=== PATIENT | male | born 1955 | race African-American/Black ===

== ENCOUNTER 2022-04-20 11:04 | Emergency (ER) | payer OTHER ==
--- OUTSIDE RECORDS SUMMARY | 2022-04-20 11:08 | XMS REPORT | Continuity of Care Document ---
:1955 Author Organization [facility] t Address [address] [place] [address] Care Team Providers Name Role Phone GINGER DOVANH Primary Care Physician Unavailable CARLIE SAM Attending Clinician Unavailable Lexa Wan Attending Clinician SRIDEVI CROWLEY Attending Clinician Unavailable Sridevi Crowley DO Attending Clinician Doctor Unassigned, [place] Attending Clinician Unavailable Carlie Sam MD Attending Clinician Only, Adc Test Attending Clinician Unavailable CARLIE SAM Admitting Clinician Unavailable SRIDEVI CROWLEY Admitting Clinician Unavailable Calrie Sam MD Admitting Clinician Payers Payer Name Policy Type Policy Number Effective Date Expiration Date Gomez pachecojm UCHE/PITO [id number] 2020 MEDICARE ADVANTAGE 00:00:00 Problems Condition Condition Condition Status Onset Resolution Last Treating Co mments Source Name Details Category Date Date Treatment Clinician Date Headache Headache Problem Active 2016-082022-01-19 Memoria (finding) (finding) 0-10 03:32:07 l Active 00:00: Jose 06/02/2017 00 Problem 01/19/2022 [facility] Essential Essential Problem Active 2022-01-19 Memoria hypertensi hypertensi 2-10 03:32:07 l on on 00:00: Jose (disorder) (disorder) 00 Active 10/03/2016 Problem 01/19/2022 [facility] 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 2-10 03:32:07 l symptomati d 00:00: Ralph pham epilepsy symptomati 00 (disorder) c epilepsy (disorder) Active 10/03/2016 Problem 01/19/2022 [facility] Allergies, Adverse Reactions, Alerts Allergy Allergy Status Severity Reaction(s) Onset Inactive Treating Comm ents Source Name Type Date Date Clinician NO KNOWN Drug Active Univers ALLERGIE Class ity of [facility] [place] [facility] [place] Social History Social Habit Start Date Stop Date Quantity Comments Source Exposure to Not sure [facility] SARS-CoV-2 (event) [facility] Tobacco use and 2020-07-16 2020-07-16 Never used [facility] exposure 00:00:00 00:00:00 [facility] Sex Assigned At [birth year] [facility] 00:00:00 00:00:00 [facility] Smoking Status Start Date Stop Date Source Social History [facility] Never smoker [facility] Medications Ordered Filled Start Stop Current Ordering Indication Dosage Frequency Signature Comments Components Source Medication Medication Date Date Medication? Clinician (SIG) Name Name Yamileth 30 Yes 30 mg = 1 M emoria mg oral 5-26 cap, PO, l capsule, 15:04: Bedtime, # Her malin extended 00 90 cap, 2 release Refill(s), Pharmacy: [email or web address], 171.45, cm, 01/16/22 9:51:00 CDT, Height, 80.455, kg, 01/16/22 9:51:00 CDT, Weight phenytoin Yes See Memoria 100 mg oral 1-24 Instructio l capsule, 14:44: ns, TAKE 2 Her malin extended 00 CAPSULES release BY MOUTH DAILY AT BEDTIME, # 180 unknown unit, 2 Refill(s), Pharmacy: [email or web address], 170.18, cm, 01/16/21 9:54:00 CDT, Height, 81.818, kg, 01/16/21 9:54:00 CDT, Weight HYDROcodone 2020-08- No 1{tbl} 1 tablet, Univers -acetaminop 2-28 12-28 Oral, ity of hen (NORCO) 22:30: 21:32 [place] 10[place]325 mg 00 :00 dose, On Medica l tablet 1 Tue Branch tablet 08/20/21 at 1630, Routine naproxen 2020-08 Yes [id number] 550mg Take 1 U nivers sodium 2-28 tablet by ity of (ANAPROX 00:00: mouth 2 [place] DS) 550 mg 00 (two) Medical tablet times Branch daily with meals. methylPREDN 2020-08 Yes [id number] Take by Univers ISolone 2- mouth ity of (MEDROL, 00:00: SEE-INSTRU Alirio as EDU,) 4 mg 00 CTIONS. Medica l tablets follow [place] package directions methocarbam 2020-08- No [id number] 500mg Take 1 Univers oL 500 mg -20 09- tablet by ity of tablet 00:00: 05:59 mouth 3 [place] 00 :00 (three) Medical times Branch daily for 5 days. Phenytoin Yes 30 mg = 1 Mem oria sodium 30 5-26 cap, PO, l MG Extended 15:13: Bedtime, # Jose Release 00 30 cap, 11 Capsule Refill(s), [Dilantin] Pharmacy: [id number], 170.18, cm, 01/16/21 9:54:00 CDT, Height, 81.818, kg, 01/16/21 9:54:00 CDT, Weight phenytoin Yes = 2 cap, Mark joselyn 100 mg oral 5-26 PO, l capsule, 15:13: Bedtime, # Her malin extended 00 60 cap, 11 release Refill(s), Pharmacy: [id number], 170.18, cm, 01/16/21 9:54:00 CDT, Height, 81.818, kg, 01/16/21 9:54:00 CDT, Weight atorvastati 2019-08 Yes 80mg Take 80 mg Univers n 80 mg 1-25 by mouth ity of tablet 15:07: at [place] 50 bedtime. Medical Branch phenytoin 2019-08 Yes 100mg Take 100 Uni vers Extended 1-25 mg by ity of 100 mg 15:07: mouth [place] capsule 50 daily. Medical Branch phenytoin 2019-08 Yes 30mg Take 30 mg Un luke Extended 1-25 by mouth ity of (DILANTIN) 15:07: daily. [place] 30 mg 50 Medical capsule Branch Pantoprazol 2019-08 Yes 40mg Take 40 mg Univers e 40 mg 1-25 by mouth ity of delayed-rel 15:07: daily. Al[place]io[place] s ease 50 Medical suspension Branch aspirin 81 2019-08 Yes 81mg Take 81 mg U nivers mg chewable 1-25 by mouth ity of tablet 15:07: daily. [address] losartan 50 2019-08 Yes 50mg Take 50 mg Univers mg tablet 1-25 by mouth ity of 15:07: daily. [address] water for 2019-08 Yes PRN, Univers irrigation 1-25 Starting ity o f irrigation 14:11: Wed [place] solution 00 07/18/20 Medical at 0811, Branch Until Discontinu ed, Routine, Intra-op simethicone 2019-08 Yes PRN, Univer s (GAS RELIEF 1-25 Starting ity of (SIMETHICON 14:11: Wed [place] E)) 40 00 07/18/20 Medical mg/0.6 mL at 0811, Branch drops Until Discontinu ed, Routine, Intra-op lactated 2019-08 2020- No 1000mL at 42 Unive rs ringers IV 1-25 11-25 mL/hr, ity of infusion 13:15: 13:16 1,000 mL, Alirio as 1,000 mL 00 :00 IV Medical Infusion, [place] ONCE, 1 dose, Thu07/18/20 at 0715, Routine, [facility] Pre-op atorvastati 2019-08 Yes 80mg Take 80 mg Univers n 80 mg 1-25 by mouth ity of tablet 09:07: at [place] [address] bedtime. Medical Branch phenytoin 2019-08 Yes 100mg Take 100 Uni vers Extended 1-25 mg by ity of 100 mg 09:07: mouth [place] capsule 50 daily. Medical Branch phenytoin 2019-08 Yes 30mg Take 30 mg Un luke Extended 1-25 by mouth ity of (DILANTIN) 09:07: daily. [place] 30 mg 50 Medical capsule Branch Pantoprazol 2019-08 Yes 40mg Take 40 mg Univers e 40 mg 1-25 by mouth ity of delayed-rel 09:07: daily. [place] s ease 50 Medical suspension [place] aspirin 81 2019-08 Yes 81mg Take 81 mg U nivers mg chewable 1-25 by mouth ity of tablet 09:07: daily. [place] [address] Medical Branch losartan 50 2019-08 Yes 50mg Take 50 mg Univers mg tablet 1-25 by mouth ity of 09:07: daily. [place] [address] Medical Branch atorvastati 2019-08 Yes 80mg Take 80 mg Univers n 80 mg 1-25 by mouth ity of tablet 09:07: at [place] [address] bedtime. Medical Branch phenytoin 2019-08 Yes 100mg Take 100 Uni vers Extended 1-25 mg by ity of 100 mg 09:07: mouth [place] capsule 50 daily. Medical Branch phenytoin 2019-08 Yes 30mg Take 30 mg Un luke Extended 1-25 by mouth ity of (DILANTIN) 09:07: daily. [place] 30 mg 50 Medical capsule Branch Pantoprazol 2019-08 Yes 40mg Take 40 mg Univers e 40 mg 1-25 by mouth ity of delayed-rel 09:07: daily. [facility] 50 Medical suspension Branch aspirin 81 2019-08 Yes 81mg Take 81 mg U nivers mg chewable 1-25 by mouth ity of tablet 09:07: daily. [place] [address] Medical Branch losartan 50 2019-08 Yes 50mg Take 50 mg Univers mg tablet 1-25 by mouth ity of 09:07: daily. [place] [address] Medical Branch phenytoin 2019-08 Yes 30mg Take 30 mg Un luke Extended 1-23 by mouth ity of (DILANTIN) 15:28: daily. [place] 30 mg 42 Medical capsule Branch phenytoin 2019-08 Yes 30mg Take 30 mg Un luke Extended 1-23 by mouth ity of (DILANTIN) 15:28: daily. [place] 30 mg 42 Medical capsule Branch aspirin 81 2019-08 Yes 81mg Take 81 mg U nivers mg chewable 1-23 by mouth ity of tablet 15:25: daily. [place] [address] Medical Branch losartan 50 2019-08 Yes 50mg Take 50 mg Univers mg tablet 1-23 by mouth ity of 15:25: daily. [place] [address] Medical Branch atorvastati 2019-08 Yes 80mg Take 80 mg Univers n 80 mg 1-23 by mouth ity of tablet 15:25: at [place] [address] bedtime. Medical Branch phenytoin 2019-08 Yes 100mg Take 100 Uni vers Extended 1-23 mg by ity of 100 mg 15:25: mouth [place] capsule 12 daily. Medical Branch Pantoprazol 2019-08 Yes 40mg Take 40 mg Univers e 40 mg -23 by mouth ity of delayed-rel 15:25: daily. Mae s ease 12 Medical suspension Branch aspirin 81 2019- Yes 81mg Take 81 mg U nivers mg chewable -23 by mouth ity of tablet 15:25: daily. [place] [address] Medical Branch losartan 50 2019- Yes 50mg Take 50 mg Univers mg tablet 09-15 by mouth ity of 15:25: daily. [place] [address] Medical Branch atorvastati 2019- Yes 80mg Take 80 mg Univers n 80 mg -23 by mouth ity of tablet 15:25: at [place] [address] bedtime. Medical Branch phenytoin 2019-08 Yes 100mg Take 100 Uni vers Extended 1-23 mg by ity of 100 mg 15:25: mouth [place] [facility] 12 daily. Medical Branch Pantoprazol 2019-08 Yes 40mg Take 40 mg Univers e 40 mg 23 by mouth ity of delayed-rel 15:25: daily. Mae s ease 12 Medical suspension Branch phenytoin Yes 200 mg = 2 Me moria 100 mg oral 5-26 cap, PO, l capsule, 19:06: Bedtime, # Her malin extended 00 60 cap, 9 release Refill(s), Pharmacy: [id number] #[id number] Phenytoin Yes 30 mg = 1 Mem oria sodium 30 5-26 cap, PO, l MG Extended 19:06: Bedtime, # [place] Release 00 90 cap, 3 Capsule Refill(s), [Dilantin] Pharmacy: [id number] #[id number] Phenytoin Yes 30 mg = 1 Mem oria sodium 30 4-03 cap, PO, l MG Extended 14:51: Bedtime, # [place] Release 00 90 cap, 3 Capsule Refill(s), [Dilantin] Pharmacy: [email or web address] #[id number] phenytoin Yes 200 mg = 2 Me moria 100 mg oral 5-16 cap, PO, l capsule, 14:31: Bedtime, # Her malin extended 54 60 cap, 9 release Refill(s), Pharmacy: [id number] #[id number] Phenytoin Yes 30 mg = 1 Mem oria sodium 30 5-16 cap, PO, l MG Extended 14:31: Bedtime, # [place] Release 52 30 cap, 9 Capsule Refill(s), [Dilantin] Pharmacy: [email or web address][id number] Vital Signs Vital Name Observation Time Observation Value Comments Source Oxygen saturation in 2021-08-20 19:15:00 99 /min University of Arterial blood by [facility] Pulse oximetry Branch Systolic blood 2021-08-20 19:15:00 152 mm[Hg] Univer sity of pressure [place] [facility] [place] Diastolic blood 2021-08-20 19:15:00 83 mm[Hg] Unive rsity of pressure [place] [facility] [place] Heart rate 2021-08-20 19:15:00 68 /min Universi ty of [facility] Body temperature 2021-08-20 19:15:00 37.17 Za [facility] ersity of [facility] Branch Respiratory rate 2021-08-20 19:15:00 18 /min Univ ersity of [place] [facility] [place] Body weight 2021-08-20 19:15:00 81.194 kg Universi ty of [place] [facility] [place] BMI 2021-08-20 19:15:00 28.03 kg/m2 Universi ty of [place] [facility] [place] Systolic blood 2020-07-18 14:55:00 122 mm[Hg] Univer sity of pressure [place] [facility] Diastolic blood 2020-07-18 14:55:00 71 mm[Hg] Unive rsity of pressure [place] [facility] [place] Heart rate 2020-07-18 14:55:00 59 /min Universi ty of [place] [facility] Respiratory rate 2020-07-18 14:55:00 18 /min [facility] Oxygen saturation in 2020-07-18 14:55:00 100 /min University of Arterial blood by [facility] Pulse oximetry Branch Body temperature 2020-07-18 14:50:00 36.22 Za [facility] ersity of [place] [facility] [place] Body height 2020-07-16 16:23:00 170.2 cm Universi ty of [place] [facility] [place] Body weight 2020-07-16 16:23:00 81.6 kg Universi ty of [place] [facility] [place] BMI 2020-07-16 16:23:00 28.17 kg/m2 Universi ty of [place] [facility] Systolic (mm Hg) 2022-01-16 14:38:00 Mark rial [place] Diastolic (mm Hg) 2022-01-16 14:38:00 Mem orial [place] Heart Rate 2022-01-16 14:38:00 Memorial [place] Respitory Rate 2022-01-16 14:38:00 Memori al [place] Height 2022-01-16 14:38:00 171.45 cm [facility] [place] Weight 2022-01-16 14:38:00 [facility] [place] BMI Calculated 2022-01-16 14:38:00 Memori al [place] Systolic (mm Hg) 2021-01-16 14:48:00 Mark rial [place] Diastolic (mm Hg) 2021-01-16 14:48:00 Mem orial [place] Heart Rate 2021-01-16 14:48:00 [facility] [place] Respitory Rate 2021-01-16 14:48:00 Memori al [place] Height 2021-01-16 14:48:00 170.18 cm [facility] [place] Weight 2021-01-16 14:48:00 [facility] [place] BMI Calculated 2021-01-16 14:48:00 Memori al [place] Systolic (mm Hg) 2020-01-17 18:39:00 Mark rial [place] Diastolic (mm Hg) 2020-01-17 18:39:00 Mem orial [place] Heart Rate 2020-01-17 18:39:00 [facility] [place] Respitory Rate 2020-01-17 18:39:00 Memori al [place] Height 2020-01-17 18:39:00 170.18 cm Memorial [place] Weight 2020-01-17 18:39:00 [facility] [place] BMI Calculated 2020-01-17 18:39:00 Memori al [place] Temperature Oral (F) 2020-01-17 18:39:00 98.7 F Memorial Jose BMI Calculated 2019-01-06 14:15:00 Memori al [place] Weight 2019-01-06 14:15:00 [facility] [place] Height 2019-01-06 14:15:00 170.18 cm [facility] [place] Respitory Rate 2019-01-06 14:15:00 Memori al [place] Heart Rate 2019-01-06 14:15:00 [facility] [place] Systolic (mm Hg) 2019-01-06 14:15:00 Mark rial [place] Diastolic (mm Hg) 2019-01-06 14:15:00 Mem orial [place] Procedures Procedure Date / Time Performing Clinician Source Performed XR HAND <3 VW LEFT 2021-08-20 21:25:53 Sridevi Crowleyit y of [facility] CT CERVICAL SPINE WO 2021-08-20 20:21:07 Sridevi Crowley [facility] ity [facility] CONTRAST [facility] CT HEAD WO CONTRAST 2021-08-20 20:21:07 Sridevi Crowley [facility] XR CHEST 1 VW 2021-08-20 20:20:52 Singer Sridevi [place] [facility] CONSENT/REFUSAL FOR 2021-08-20 18:58:35 Doctor Unassigned, No Un iversity of [place] DIAGNOSIS AND TREATMENT Name [facility] NOTICE OF PRIVACY 2021-08-20 18:58:13 Doctor Unassigned, No [facility] 2020-07-18 12:52:38 Triston Roberts [facility] CONSENT/REFUSAL FOR 2020-07-17 19:21:33 Doctor Unassigned, No Un [facility] [place] DIAGNOSIS [facility] TREATMENT Name [facility] ASSIGNMENT OF BENEFITS 2020-07-17 19:21:09 Doctor Unassigned, No [facility] DSU PRE-OP 2020-06-21 05:01:00 Doctor Unassigned, No Univer [facility] Encounters Start End Encounter Admission Attending Care Care Encounter Source Date/Time Date/Time Type Type Clinicians Facility Department ID 2021-06-22 Outpatient R ANASTASIA [facility] [id number] Univers 07:34:15 CARLIE [facility] 2023-01-16 2023-01-16 Outpatient MHIE DARLING [id number] Memoria 09:30:00 09:30:00 Mindy Garcia 2022-01-16 2022-01-17 Outpatient nullFlavo MNA [id number] Memoria 14:30:00 04:59:59 r Neurology 06 mariluz Garcia 2022-01-16 2022-01-16 Outpatient HECTOR Wan [id number] 09:30:00 23:59:59 Lexa Starr 2022-01-16 2022-01-16 Outpatient MHIE LAURENIE [id number] Memoria 09:30:00 09:30:00 06 mariluz Garcia 2021-08-20 2021-08-20 Emergency X , [facility] ERT [id number] Univers 13:16:00 16:00:00 SRIDEVI dontaejameel of [facility] 2021-08-20 2021-08-20 Emergency , [facility] [id number] Univers 13:16:00 16:00:00 Sridevi STONE [id number] i ty [facility] [id number] [facility] [id number] [facility] 084 Branch 2021-08-20 2021-08-20 Orders Doctor JAIRO [id number] Univers 00:00:00 00:00:00 Only Unassigned, ORACIO [id number] ity [facility] [id number] [facility] [id number] [facility] 009 Branch 2021-01-16 2021-01-17 Outpatient nullFlavo MNA [id number] Memoria 14:30:00 04:59:59 r Neurology 05 l Kumar Jose 2021-01-16 2021-01-16 Outpatient NORBERTO WanSCHER MHMISCHER [id number] 09:30:00 23:59:59 Lexa Yulia [facility] 2021-01-16 2021-01-16 Ambulatory nullFlavo MNA [id number] Memoria 14:30:00 14:30:00 Pre-Reg r Neurology 04 l Kumar [place] 2021-01-16 2021-01-16 Outpatient MHIE MHIE [id number] Memoria 09:30:00 09:30:00 04 l [place] 2021-01-16 2021-01-16 Outpatient MHIE MHIE [id number] Memoria 09:30:00 09:30:00 05 mariluz [place] 2021-01-16 2021-01-16 Outpatient NORBERTO WanSCHER MHMISCHER [id number] 09:30:00 09:30:00 Lexa 04 Matty 2020-07-18 2020-07-18 [facility] [id number] Univers 06:58:00 09:07:00 Carlie Lucero [id number] ity of [place] [id number] [place] [id number] [facility] 071 Branch 2020-07-17 2020-07-17 Laboratory Only, Adc Test [facility] [id number]. [id number] Univers 13:28:55 13:43:55 Only Carlie Samton 350.1.1 3.10 ity of [place] [id number] [place] [id number] [facility] 353 Branch 2020-07-17 2020-07-17 Outpatient R [facility]ZIN [facility] [id number] Univers 13:15:00 13:15:00 CARLIE Bryant o f [facility] 2020-07-17 2020-07-17 Orders Doctor JAIRO [id number] Univers 00:00:00 00:00:00 Only Unassigned, [place] [id number] [facility] [id number] Alirio as [id number] [facility] 009 [place] 2020-01-17 2020-01-18 Outpatient nullFlavo MNA [id number] Memoria 18:15:00 04:59:59 r Neurology 03 l Kumar [place] 2020-01-17 2020-01-17 Outpatient LAUREN WanMISCHER MHMISCHER [id number] 13:15:00 23:59:59 Lexa 03 [facility] 2020-01-17 2020-01-17 Outpatient MHIE MHIE [id number] Memoria 13:15:00 13:15:00 03 mariluz [place] 2020-01-12 2020-01-12 Ambulatory nullFlavo MNA [id number] Memoria 14:00:00 14:00:00 Pre-Reg r Neurology 02 l Kumar [place] 2020-01-12 2020-01-12 Outpatient MHIE MHIE [id number] Memoria 09:00:00 09:00:00 02 mariluz [place] 2020-01-12 2020-01-12 Outpatient LAUREN WanMISCHER MHMISCHER [id number] 09:00:00 09:00:00 Lexa 02 [facility] 2019-01-06 2019-01-07 Outpatient nullFlavo MNA [id number] Memoria 14:00:00 04:59:59 r Neurology 01 l Kumar Garcia 2019-01-06 2019-01-06 Outpatient Soco MISCHER MHMISCHER [id number] 09:00:00 23:59:59 Lexa Cristiana Matty 2019-01-06 2019-01-06 Outpatient MHIE MHIE [id number] Memoria 09:00:00 09:00:00 01 mariluz Garcia 2018-09-02 2018-09-04 Outside nullFlavo MNA [id number] Memoria 13:50:00 05:59:59 Medical r Neurology 01 l Records Kumar Garcia 2018-09-02 2018-09-03 Outpatient MHMISCHER MHMISCHER [id number] 07:50:00 23:59:59 2018-04-08 2018-04-08 Outpatient MHIE MHIE [id number] Memoria 09:15:00 09:15:00 00 mariluz Garcia Results This patient has no known results.
[2022-04-20] MEDS ORDERED: KETOROLAC 30 MG/ML INJ ONE (11:44)
--- NOTE | 2022-04-20 13:18 | RAD REPORT ---
EXAM DESCRIPTION: RAD - Shoulder Left 2 View - 04/20/2022 1:05 pm CLINICAL HISTORY: shoulder pain COMPARISON: No comparisons FINDINGS/IMPRESSION: No acute fracture. No malalignment. Left AC joint degenerative changes with sub acromial spurring.
--- NOTE | 2022-04-20 13:29 | EDPHYS ---
Physician Documentation [facility] Name: Nav Clemons Age: 66 yrs Sex: Male : 1955 Arrival Date: 04/20/2022 Time: 11:08 Bed 17 Private MD: ED Physician Jaylan Rose HPI: 04/20 11:23 This 66 yrs old Black Male presents to ER via Ambulatory with complaints of Shoulder jmm Injury. 11:23 The patient or guardian complains of an injury, pain. Onset: The symptoms/episode jmm began/occurred acutely, 1 day(s) ago. Modifying factors: the symptoms are alleviated by nothing. The symptoms are aggravated by movement. Is a 66-year-old male with history of hyperlipidemia, hypertension, epilepsy the presents emerged part with complaints of left shoulder pain beginning after a fall which occurred yesterday. Patient denies hitting his head. Denies other injury.. Historical: - Allergies: 11:14 NKA; ss - PMHx: 11:14 Hyperlipidemia; Hypertension; Seizures; ss - Immunization history:: Client reports having NOT received the Covid vaccine. - Social history:: Smoking status: Patient denies any tobacco usage or history of. ROS: 11:23 Constitutional: Negative for fever, chills, and weight loss, Cardiovascular: Negative jmm for chest pain, palpitations, and edema, Respiratory: Negative for shortness of breath, cough, wheezing, and pleuritic chest pain. 11:23 MS/extremity: Positive for injury or acute deformity. 11:23 All other systems are negative. Exam: 11:23 Constitutional: This is a well developed, well nourished patient who is awake, alert, jmm and in no acute distress. Head/Face: atraumatic. Eyes: EOMI, no conjunctival erythema appreciated ENT: Moist Mucus Membranes Neck: Trachea midline, Supple Chest/axilla: Normal chest wall appearance and motion. Cardiovascular: Regular rate and rhythm. No edema appreciated Respiratory: Normal respirations, no respiratory distress appreciated Abdomen/GI: Non distended Back: Normal ROM Skin: General appearance color normal 11:23 Musculoskeletal/extremity: ROM: intact in all extremities, Painful abduction appreciated to the left shoulder, compartments are soft, full radial pulse, full airplane rigger strength, neurovascular intact. 11:23 Skin: Appearance: Color: normal in color. 11:23 Neuro: Orientation: is normal, Mentation: is normal, Memory: is normal. 11:23 Psych: Behavior/mood is pleasant, cooperative. Vital Signs: 11:13 BP 124 / 84; Pulse 65; Resp 14; Temp 98.9(TE); Pulse Ox 99% on R/A; Weight 78.93 kg; ss Height 5 ft. 7 in. (170.18 cm); Pain 8/10; 11:13 Body Mass Index 27.25 (78.93 kg, 170.18 cm) ss MDM: 11:23 Patient medically screened. [facility] 13:25 Data reviewed: vital signs, nurses notes. Counseling: I had a detailed discussion with [facility] the patient and/or guardian regarding: the historical points, exam findings, and any diagnostic results supporting the discharge/admit diagnosis, radiology results, the need for outpatient follow up, to return to the emergency department if symptoms worsen or persist or if there are any questions or concerns that arise at home. ED course: Xray is negative. patient advised to follow up with ortho and otherwise given strict return precautions. patiet understood and agrees with the plan of care. . 04/20 11:24 Order name: Shoulder Left (2 View) XRAY; Complete Time: 13:20 [facility] 04/20 13:28 Order name: Sling; Complete Time: 13:46 [facility] Administered Medications: 11:38 Drug: Ketorolac 30 mg Route: IM; Site: right deltoid; mb8 12:31 Follow up: Response: No adverse reaction; Pain is decreased mb8 Disposition: 17:27 Co-signature as Attending Physician, Jaylan Rose MD. rn Disposition Summary: 04/20/22 13:28 Discharge Ordered Location: Home [facility] Condition: Stable [facility] Diagnosis - Other sprain of left shoulder joint [facility] Followup: [facility] - With: Nav Lowery MD - When: 2 - 3 days - Reason: Recheck today's complaints, Continuance of care, Re-evaluation by your physician Discharge Instructions: - Discharge Summary Sheet [facility] - Shoulder Pain [facility] Forms: - Medication Reconciliation Form [facility] - Thank You Letter [facility] - Antibiotic Education [facility] - Prescription Opioid Use [facility] Prescriptions: - orphenadrine citrate 100 mg Oral Tablet Sustained Release - take 1 tablet by ORAL route 2 times per day As needed; 20 tablet; Refills: 0, [facility] Product Selection Permitted Signatures: Dispatcher [employer] Nolberto Niño PA PA jmm Jaylan Rose MD MD rn Smirch, Shelby, RN RN ss Francisco Doe RN RN mb8
--- NOTE | 2022-04-20 13:29 | ER ---
Nurse's Notes [facility] Name: Nav Clemons Age: 66 yrs Sex: Male : 1955 Arrival Date: 04/20/2022 Time: 11:08 Bed 17 Private MD: Diagnosis: Other sprain of left shoulder joint Presentation: 04/20 11:13 Chief complaint: Patient states: L shoulder pain after falling yesterday. Coronavirus ss screen: Client denies travel out of the [place] in the last 14 days. Ebola Screen: Patient denies exposure to infectious person. Patient denies travel to an Ebola-affected area in the 21 days before illness onset. Initial Sepsis Screen: Does the patient meet any 2 criteria? No. Patient's initial sepsis screen is negative. Does the patient have a suspected source of infection? No. Patient's initial sepsis screen is negative. Risk Assessment: Do you want to hurt yourself or someone else? Patient reports no desire to harm self or others. Onset of symptoms was April 19, 2022. 11:13 Method Of Arrival: Ambulatory ss 11:13 Acuity: LOLY 4 ss Triage Assessment: 11:40 General: Appears in no apparent distress. comfortable, Behavior is calm, cooperative, mb8 appropriate for age. Injury Description: Fall from ladder, left shoulder pain. Historical: - Allergies: 11:14 NKA; ss - PMHx: 11:14 Hyperlipidemia; Hypertension; Seizures; ss - Immunization history:: Client reports having NOT received the Covid vaccine. - Social history:: Smoking status: Patient denies any tobacco usage or history of. Screenin:39 Abuse screen: Denies threats or abuse. Denies injuries from another. Nutritional mb8 screening: No deficits noted. Tuberculosis screening: No symptoms or risk factors identified. Fall Risk None identified. Assessment: 11:38 General: Appears in no apparent distress. comfortable, Behavior is calm, cooperative, mb8 appropriate for age. Pain: Complains of pain in Left Shoulder Pain currently is 8 out of 10 on a pain scale. Quality of pain is described as aching. Cardiovascular: No deficits noted. Pulses are all present. Respiratory: No deficits noted. Breath sounds are clear bilaterally. Musculoskeletal: Reports pain in Left Shoulder Pain is 8 out of 10 on a pain scale. 12:31 Reassessment: Patient and/or family updated on plan of care and expected duration. Pain mb8 level reassessed. Patient is alert, oriented x 3, equal unlabored respirations, skin warm/dry/pink. Patient states feeling better. Patient states symptoms have improved. 13:03 Reassessment: Patient and/or family updated on plan of care and expected duration. Pain mb8 level reassessed. Patient is alert, oriented x 3, equal unlabored respirations, skin warm/dry/pink. Patient states feeling better. Patient undated on the wait for x-rays to be read. Patient given cup of water with CHRISS Sherman approval. . Vital Signs: 11:13 BP 124 / 84; Pulse 65; Resp 14; Temp 98.9(TE); Pulse Ox 99% on R/A; Weight 78.93 kg; ss Height 5 ft. 7 in. (170.18 cm); Pain 8/10; 11:13 Body Mass Index 27.25 (78.93 kg, 170.18 cm) ED Course: 11:08 Patient arrived in ED. rg4 11:10 Nolberto Sherman PA is PHCP. [facility] 11:10 Jaylan Rose MD is Attending Physician. jmm 11:14 Triage completed. ss 11:14 Arm band placed on right wrist. ss 11:19 Francisco Doe, WILTON is Primary Nurse. mb8 11:39 Patient has correct armband on for positive identification. Bed in low position. Call mb8 light in reach. Side rails up X2. 11:39 No provider procedures requiring assistance completed. X-ray(s) taken. Patient did not mb8 have IV access during this emergency room visit. 12:51 Shoulder Left (2 View) XRAY Sent. mb8 13:07 Shoulder Left (2 View) XRAY In Process Unspecified. EDMS 13:28 Nav Lowery MD is Referral Physician. jmm 13:52 Sling applied to left arm. mb8 Administered Medications: 11:38 Drug: Ketorolac 30 mg Route: IM; Site: right deltoid; mb8 12:31 Follow up: Response: No adverse reaction; Pain is decreased mb8 Medication: 11:39 VIS not applicable for this client. mb8 Outcome: 13:28 Discharge ordered by . jmm 13:52 Discharged to home ambulatory. mb8 13:52 Condition: stable 13:52 Discharge instructions given to patient, Instructed on discharge instructions, follow up and referral plans. no drinking with medication, no driving heavy equipment, medication usage, Demonstrated understanding of instructions, follow-up care, medications, Prescriptions given X 1. 13:53 Patient left the ED. mb8 Signatures: Dispatcher [employer] EDMS Nolberto Sherman PA PA jmm Smirch, Shelby, RN RN ss Garcia, Rubi rg4 Francisco Doe RN RN mb8
[2022-04-20 14:00] VITALS: BP 124/84; TEMP 98.9; O2SAT 99
== END 2022-04-20 13:53 | disposition home or self-care (01) ==
LOC: ER 11:04
DX: S43.492A Other sprain of left shoulder joint, initial encounter (principal); I10 Essential (primary) hypertension
CPT/HCPCS: 96372; 99284

== ENCOUNTER 2023-01-05 23:31 | Observation (INO) | payer OTHER ==
--- OUTSIDE RECORDS SUMMARY | 2023-01-05 23:34 | XMS REPORT | Continuity of Care Document ---
:1955 Author Organization [facility] t Address [address] [place] [address] [place] [id number] Care Team Providers Name Role Phone MIGUEL ANGEL MILES Primary Care Physician Unavailable CARLIE SEGURA Attending Clinician Unavailable Marino Andrea Attending Clinician Unavailable Lexa Wan Attending Clinician SRIDEVI CROWLEY Attending Clinician Unavailable Sridevi Crowley DO Attending Clinician Doctor Unassigned, [place] Attending Clinician Unavailable Carlie Segura MD Attending Clinician Only, Adc Test Attending Clinician Unavailable CARLIE SEGURA Admitting Clinician Unavailable Marino Andrea Admitting Clinician Unavailable SRIDEVI CROWLEY Admitting Clinician Unavailable Carlie Segura MD Admitting Clinician Payers Payer Name Policy Type Policy Number Effective Date Expiration Date Gomez IVEY/PITO [id number] 2020 MEDICARE ADVANTAGE 00:00:00 Problems Condition Condition Condition Status Onset Resolution Last Treating Co mments Source Name Details Category Date Date Treatment Clinician Date Headache Headache Problem Active 2016-082022-01-19 Memoria (finding) (finding) 0-10 03:32:07 l Active 00:00: Jose 06/02/2017 00 Problem 01/19/2022 [facility] Essential Essential Problem Active 2022-01-19 Memoria hypertensi hypertensi 2-10 03:32:07 l on on 00:00: [place] (disorder) (disorder) 00 Active 10/03/2016 Problem 01/19/2022 [facility] 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 2- 03:32:07 l symptomati d 00:00: Ralph n c epilepsy symptomati 00 (disorder) c epilepsy (disorder) Active 10/03/2016 Problem 01/19/2022 [facility] Allergies, Adverse Reactions, Alerts Allergy Allergy Status Severity Reaction(s) Onset Inactive Treating Comm ents Source Name Type Date Date Clinician No Known DA Active [facility] All[facility]ie 3-02 [place] [facility] NO KNOWN Drug Active Univers ALLERGIE Class ity of S [facility] No Known No Known Active Memori a Medicati Medicati l on on [place] Allergie Allergie s s Social History Social Habit Start Date Stop Date Quantity Comments Source Exposure to Not sure [facility] SARS-CoV-2 (event) Medica l Branch Tobacco use and 2020-07-16 2020-07-16 Never used [facility] exposure 00:00:00 00:00:00 [facility] Sex Ass[birth year] At [birth year] [facility] 00:00:00 00:00:00 [facility] Smoking Status Start Date Stop Date Source Social History [facility] Never smoker [facility] Medications Ordered Filled Start Stop Current Ordering Indication Dosage Frequency Signature Comments Components Source Medication Medication Date Date Medication? Clinician (SIG) Name Name Dilantin 30 Yes 30 mg = 1 M emoria mg oral 5-26 cap, PO, l capsule, 15:04: Bedtime, # Her malin extended 00 90 cap, 2 release Refill(s), Pharmacy: [facility], 171.45, cm, 01/16/22 9:51:00 CDT, Height, 80.455, kg, 01/16/22 9:51:00 CDT, Weight Dilantin 30 2022-0 Yes 30 mg = 1 M emoria mg oral 5-26 cap, PO, l capsule, 15:04: Bedtime, # Her malin extended 00 90 cap, 2 release Refill(s), Pharmacy: [facility], 171.45, cm, 01/16/22 9:51:00 CDT, Height, 80.455, kg, 01/16/22 9:51:00 CDT, Weight Dilantin 30 2021-0 Yes 30 mg = 1 M emoria mg oral 5-26 cap, PO, l capsule, 15:04: Bedtime, # Her malin extended 00 90 cap, 2 release Refill(s), Pharmacy: [facility], 171.45, cm, 01/16/22 9:51:00 CDT, Height, 80.455, kg, 01/16/22 9:51:00 CDT, Weight phenytoin 2021-0 Yes See Memoria 100 mg oral 1-24 Instructio l capsule, 14:44: ns, TAKE 2 Her malin extended 00 CAPSULES release BY MOUTH DAILY AT BEDTIME, # 180 unknown unit, 2 Refill(s), Pharmacy: [facility], 170.18, cm, 01/16/21 9:54:00 CDT, Height, 81.818, kg, 01/16/21 9:54:00 CDT, Weight phenytoin 2021-0 Yes See Memoria 100 mg oral 1-24 Instructio l capsule, 14:44: ns, TAKE 2 Her malin extended 00 CAPSULES release BY MOUTH DAILY AT BEDTIME, # 180 unknown unit, 2 Refill(s), Pharmacy: [facility], 170.18, cm, 01/16/21 9:54:00 CDT, Height, 81.818, kg, 01/16/21 9:54:00 CDT, Weight phenytoin 2021-0 Yes See Memoria 100 mg oral 1-24 Instructio l capsule, 14:44: ns, TAKE 2 Her malin extended 00 CAPSULES release BY MOUTH DAILY AT BEDTIME, # 180 unknown unit, 2 Refill(s), [facility]: [email or web address], 170.18, cm, 01/16/21 9:54:00 CDT, Height, 81.818, kg, 01/16/21 9:54:00 CDT, Weight HYDROcodone 2020-08- No 1{tbl} 1 tablet, Univers -acetaminop 10-21 Oral, ity of hen (NORCO) 22:30: 21:32 [place]CE[place] 10[place]325 mg 00 :00 dose, On Medica l tablet 1 Tue Branch tablet 08/20/21 at 1630, Routine naproxen 2020-08 Yes [id number] 550mg Take 1 U nivers sodium - tablet by ity of (ANAPROX 00:00: mouth 2 [place] DS) 550 mg 00 (two) Medical tablet times Branch daily with meals. methylPREDN 2020-08 Yes [id number] Take by Univers ISolone 10-21 mouth ity of (MEDROL, 00:00: SEE-INSTRU Alirio as EDU,) 4 mg 00 CTIONS. Medica l tablets follow Branch package directions methocarbam 2020-08 No [id number] 500mg Take 1 Univers oL 500 mg 10-21 tablet by ity of tablet 00:00: 05:59 mouth 3 [place] 00 :00 (three) Medical times Branch daily for 5 days. Phenytoin Yes 30 mg = 1 Mem oria sodium 30 5-26 cap, PO, l MG Extended 15:13: Bedtime, # [place] Release 00 30 cap, 11 Capsule Refill(s), [Dilantin] Pharmacy: [id number], 170.18, cm, 01/16/21 9:54:00 CDT, Height, 81.818, kg, 01/16/21 9:54:00 CDT, Weight phenytoin Yes = 2 cap, Mark joselyn 100 mg oral 5-26 PO, l capsule, 15:13: Bedtime, # Her malin extended 00 60 cap, 11 release Refill(s), Pharmacy: [id number], 170.18, cm, 01/16/21 9:54:00 CDT, Height, 81.818, kg, 01/16/21 9:54:00 CDT, Weight Phenytoin Yes 30 mg = 1 Mem oria sodium 30 5-26 cap, PO, l MG Extended 15:13: Bedtime, # [place] Release 00 30 cap, 11 Capsule Refill(s), [Dilantin] Pharmacy: [facility] #[id number], 170.18, cm, 01/16/21 9:54:00 CDT, Height, 81.818, kg, 01/16/21 9:54:00 CDT, Weight phenytoin 2020-0 Yes = 2 cap, Mark joselyn 100 mg oral 5-26 PO, l capsule, 15:13: Bedtime, # Her malin extended 00 60 cap, 11 release Refill(s), Pharmacy: [facility] #[id number], 170.18, cm, 01/16/21 9:54:00 CDT, Height, 81.818, kg, 01/16/21 9:54:00 CDT, Weight Phenytoin 0 Yes 30 mg = 1 Mem oria sodium 30 5-26 cap, PO, l MG Extended 15:13: Bedtime, # Jose Release 00 30 cap, 11 Capsule Refill(s), [Dilantin] Pharmacy: [facility] #[id number], 170.18, cm, 01/16/21 9:54:00 CDT, Height, 81.818, kg, 01/16/21 9:54:00 CDT, Weight phenytoin 2020-0 Yes = 2 cap, Mark joselyn 100 mg oral 5-26 PO, l capsule, 15:13: Bedtime, # malin extended 00 60 cap, 11 release Refill(s), Pharmacy: [facility] #[id number], 170.18, cm, 01/16/21 9:54:00 CDT, Height, [...] by mouth ity of (DILANTIN) 15:07: daily. [place] 30 mg 50 Medical capsule Branch Pantoprazol 2019-08 Yes 40mg Take 40 mg Univers e 40 mg 1-25 by mouth ity of delayed-rel 15:07: daily. Alirio[place] s ease 50 Medical suspension Branch aspirin 81 2019-08 Yes 81mg Take 81 mg U nivers mg chewable 1-25 by mouth ity of tablet 15:07: daily. [address] losartan 50 2019-08 Yes 50mg Take 50 mg Univers mg tablet 1-25 by mouth ity of 15:07: daily. [address] water for 2019-08 Yes PRN, Univers irrigation 1-25 Starting ity o f irrigation 14:11: Thu [place] solution 00 07/18/20 Medical at 0811, Branch Until Discontinu ed, Routine, Intra-op simethicone 2019-08 Yes PRN, Univer s (GAS RELIEF 1-25 Starting ity of (SIMETHICON 14:11: Thu [place] E)) 40 00 07/18/20 Medical mg/0.6 mL at 0811, Branch drops Until Discontinu ed, Routine, Intra-op lactated 2019-08 2020- No 1000mL at 42 Unive rs ringers IV 1-25 11-25 mL/hr, ity of infusion 13:15: 13:16 1,000 mL, Alirio as 1,000 mL 00 :00 IV Medical Infusion, [place] ONCE, 1 dose, Thu07/18/20 at 0715, Routine, [facility]SU Pre-op atorvastati 2019-08 Yes 80mg Take 80 mg Univers n 80 mg 1-25 by mouth ity of tablet 09:07: at [place] [address] bedtime. Medical Branch phenytoin 2019-08 Yes 100mg Take 100 Uni vers Extended 1-25 mg by ity of 100 mg 09:07: mouth [place] capsule 50 daily. Medical Branch phenytoin 2019-08 Yes 30mg Take 30 mg Un luke Extended 1-25 by mouth ity of (DILANTIN) 09:07: daily. [place] 30 mg 50 Medical capsule Branch Pantoprazol 2019-08 Yes 40mg Take 40 mg Univers e 40 mg 1-25 by mouth ity of delayed-rel 09:07: daily. [place] s ease 50 Medical suspension Branch aspirin 81 2019-08 Yes 81mg Take 81 mg U nivers mg chewable 1-25 by mouth ity of tablet 09:07: daily. [address] losartan 50 2019-08 Yes 50mg Take 50 mg Univers mg tablet 1-25 by mouth ity of 09:07: daily. [place] [address] Medical Branch atorvastati 2019-08 Yes 80mg Take 80 mg Univers n 80 mg 1-25 by mouth ity of tablet 09:07: at [place] [address] bedtime. Medical Branch phenytoin 2019-08 Yes 100mg Take 100 Uni vers Extended 1-25 mg by ity of 100 mg 09:07: mouth [place] capsule 50 daily. Medical Branch phenytoin 2019-08 Yes 30mg Take 30 mg Un luke Extended 1-25 by mouth ity of (DILANTIN) 09:07: daily. [place] 30 mg 50 Medical capsule Branch Pantoprazol 2019-08 Yes 40mg Take 40 mg Univers e 40 mg 1-25 by mouth ity of delayed-rel 09:07: daily. [facility] s ease 50 Medical suspension Branch aspirin 81 2019-08 Yes 81mg Take 81 mg U nivers mg chewable 1-25 by mouth ity of tablet 09:07: daily. [place] [address] Medical Branch losartan 50 2019-08 Yes 50mg Take 50 mg Univers mg tablet 1-25 by mouth ity of 09:07: daily. [place] [address] Medical Branch phenytoin 2019-08 Yes 30mg Take 30 mg Un luke Extended 1-23 by mouth ity of (DILANTIN) 15:28: daily. [place] 30 mg 42 Medical capsule Branch phenytoin 2019-08 Yes 30mg Take 30 mg Un luke Extended 1-23 by mouth ity of (DILANTIN) 15:28: daily. [place] 30 mg 42 Medical capsule Branch aspirin 81 2019-08 Yes 81mg Take 81 mg U nivers mg chewable 1-23 by mouth ity of tablet 15:25: daily. [place] [address] Medical Branch losartan 50 2019-08 Yes 50mg Take 50 mg Univers mg tablet 1-23 by mouth ity of 15:25: daily. [place] [address] Medical Branch atorvastati 2019-08 Yes 80mg Take 80 mg Univers n 80 mg 1-23 by mouth ity of tablet 15:25: at [place] [address] bedtime. Medical Branch phenytoin 2019-08 Yes 100mg Take 100 Uni vers Extended 1-23 mg by ity of 100 mg 15:25: mouth [place] capsule 12 daily. Medical Branch Pantoprazol 2019-08 Yes 40mg Take 40 mg Univers e 40 mg 1-23 by mouth ity of delayed-rel 15:25: daily. [place] [address] Medical suspension Branch aspirin 81 2019- Yes 81mg Take 81 mg U nivers mg chewable 23 by mouth ity of tablet 15:25: daily. [place] [address] Medical Branch losartan 50 2019- Yes 50mg Take 50 mg Univers mg tablet 23 by mouth ity of 15:25: daily. [place] [address] Medical Branch atorvastati 2019- Yes 80mg Take 80 mg Univers n 80 mg 23 by mouth ity of tablet 15:25: at [place] [address] bedtime. Medical Branch phenytoin 2019-08 Yes 100mg Take 100 Uni vers Extended 1-23 mg by ity of 100 mg 15:25: mouth [place] capsule 12 daily. Medical Branch Pantoprazol 2019-08 Yes 40mg Take 40 mg Univers e 40 mg 23 by mouth ity of delayed-rel 15:25: daily. [place] [address] Medical suspension Branch phenytoin 2019-0 Yes 200 mg = 2 Me moria 100 mg oral 5-26 cap, PO, l capsule, 19:06: Bedtime, # Her malin extended 00 60 cap, 9 release Refill(s), Pharmacy: [id number] Phenytoin 2020-0 Yes 30 mg = 1 Mem oria sodium 30 5-26 cap, PO, l MG Extended 19:06: Bedtime, # [place] Release 00 90 cap, 3 Capsule Refill(s), [Dilantin] Pharmacy: [id number] phenytoin 2020-0 Yes 200 mg = 2 Me moria 100 mg oral 5-26 cap, PO, l capsule, 19:06: Bedtime, # Her malin extended 00 60 cap, 9 release Refill(s), Pharmacy: [id number] Phenytoin 2020-0 Yes 30 mg = 1 Mem oria sodium 30 5-26 cap, PO, l MG Extended 19:06: Bedtime, # [place] Release 00 90 cap, 3 Capsule Refill(s), [Dilantin] Pharmacy: [id number] phenytoin 2020-0 Yes 200 mg = 2 Me moria 100 mg oral 5-26 cap, PO, l capsule, 19:06: Bedtime, # Her malin extended 00 60 cap, 9 release Refill(s), Pharmacy: [id number] Phenytoin 2020-0 Yes 30 mg = 1 Mem oria sodium 30 5-26 cap, PO, l MG Extended 19:06: Bedtime, # [place] Release 00 90 cap, 3 Capsule Refill(s), [Dilantin] Pharmacy: [id number] Phenytoin 2019-0 Yes 30 mg = 1 Mem oria sodium 30 4-03 cap, PO, l MG Extended 14:51: Bedtime, # [place] Release 00 90 cap, 3 Capsule Refill(s), [Dilantin] Pharmacy: [id number] Phenytoin 2019-0 Yes 30 mg = 1 Mem oria sodium 30 4-03 cap, PO, l MG Extended 14:51: Bedtime, # [place] Release 00 90 cap, 3 Capsule Refill(s), [Dilantin] Pharmacy: [id number] Phenytoin 2019-0 Yes 30 mg = 1 Mem oria sodium 30 4-03 cap, PO, l MG Extended 14:51: Bedtime, # [place] Release 00 90 cap, 3 Capsule Refill(s), [Dilantin] Pharmacy: [id number] phenytoin 2018-0 Yes 200 mg = 2 Me moria 100 mg oral 5-16 cap, PO, l capsule, 14:31: Bedtime, # Her malin extended 54 60 cap, 9 release Refill(s), Pharmacy: [id number] phenytoin 2018-0 Yes 200 mg = 2 Me moria 100 mg oral 5-16 cap, PO, l capsule, 14:31: Bedtime, # Her malin extended 54 60 cap, 9 release Refill(s), Pharmacy: [id number] phenytoin 2018-0 Yes 200 mg = 2 Me moria 100 mg oral 5-16 cap, PO, l capsule, 14:31: Bedtime, # Her malin extended 54 60 cap, 9 release Refill(s), Pharmacy: [id number] Phenytoin 2018-0 Yes 30 mg = 1 Mem oria sodium 30 5-16 cap, PO, l MG Extended 14:31: Bedtime, # [place] Release 52 30 cap, 9 Capsule Refill(s), [Dilantin] Pharmacy: [id number] Phenytoin 2019-0 Yes 30 mg = 1 Mem oria sodium 30 5-16 cap, PO, l MG Extended 14:31: Bedtime, # Jose Release 52 30 cap, 9 Capsule Refill(s), [Dilantin] Pharmacy: [id number] Phenytoin 2019-0 Yes 30 mg = 1 Mem oria sodium 30 5-16 cap, PO, l MG Extended 14:31: Bedtime, # [place] Release 52 30 cap, 9 Capsule Refill(s), [Dilantin] Pharmacy: [facility] #[id number] Vital Signs Vital Name Observation Time Observation Value Comments Source Diastolic blood 2021-08-20 19:15:00 83 mm[Hg] Unive rsity of [facility] Heart rate 2021-08-20 19:15:00 68 /min [facility] Body temperature 2021-08-20 19:15:00 37.17 Za [facility] Respiratory rate 2021-08-20 19:15:00 18 /min [facility] Body weight 2021-08-20 19:15:00 81.194 kg [facility] BMI 2021-08-20 19:15:00 28.03 kg/m2 [facility] Oxygen saturation in 2021-08-20 19:15:00 99 /min University of Arterial blood by [facility] Pulse oximetry Branch Systolic blood 2021-08-20 19:15:00 152 mm[Hg] Univer sity of [facility] Systolic blood 2020-07-18 14:55:00 122 mm[Hg] Univer sity of [facility] Diastolic blood 2020-07-18 14:55:00 71 mm[Hg] Unive rsity of [facility] Heart rate 2020-07-18 14:55:00 59 /min [facility] Respiratory rate 2020-07-18 14:55:00 18 /min [facility] Oxygen saturation in 2020-07-18 14:55:00 100 /min University of Arterial blood by [facility] Pulse oximetry Branch Body temperature 2020-07-18 14:50:00 36.22 Za [facility] Body height 2020-07-16 16:23:00 170.2 cm [facility] ty [facility] Body weight 2020-07-16 16:23:00 81.6 kg [facility] BMI 2020-07-16 16:23:00 28.17 kg/m2 [facility] Systolic (mm Hg) 2022-01-16 14:38:00 Mark rial [place] Diastolic (mm Hg) 2022-01-16 14:38:00 Mem orial [place] Heart Rate 2022-01-16 14:38:00 Memorial [place] Respitory Rate 2022-01-16 14:38:00 Memori al [place] Height 2022-01-16 14:38:00 171.45 cm [facility] [place] Weight 2022-01-16 14:38:00 [facility] [place] BMI Calculated 2022-01-16 14:38:00 Memori al [place] Systolic (mm Hg) 2021-01-16 14:48:00 Mark rial [place] Diastolic (mm Hg) 2021-01-16 14:48:00 Mem orial [place] Heart Rate 2021-01-16 14:48:00 Memorial [place] Respitory Rate 2021-01-16 14:48:00 Memori al [place] Height 2021-01-16 14:48:00 170.18 cm Memorial [place] Weight 2021-01-16 14:48:00 Memorial [place] BMI Calculated 2021-01-16 14:48:00 Memori al [place] Systolic (mm Hg) 2020-01-17 18:39:00 Mark rial [place] Diastolic (mm Hg) 2020-01-17 18:39:00 Mem orial [place] Heart Rate 2020-01-17 18:39:00 [facility] [place] Respitory Rate 2020-01-17 18:39:00 Memori al [place] Height 2020-01-17 18:39:00 170.18 cm Memorial [place] Weight 2020-01-17 18:39:00 Memorial [place] BMI Calculated 2020-01-17 18:39:00 Memori al [place] Temperature Oral (F) 2020-01-17 18:39:00 98.7 F [facility] [place] BMI Calculated 2019-01-06 14:15:00 Memori al [place] Weight 2019-01-06 14:15:00 Memorial [place] Height 2019-01-06 14:15:00 170.18 cm [facility] [place] Respitory Rate 2019-01-06 14:15:00 Memori al [place] Heart Rate 2019-01-06 14:15:00 Julio Garcia Systolic (mm Hg) 2019-01-06 14:15:00 Mark Garcia Diastolic (mm Hg) 2019-01-06 14:15:00 Efrain Garcia Procedures Procedure Date / Time Performing Clinician Source Performed XR HAND <3 VW LEFT 2021-08-20 21:25:53 Sridevi Crowley [facility] y [facility] CT CERVICAL SPINE WO 2021-08-20 20:21:07 Sridevi Crowley [facility] CONTRAST [facility] Branch CT HEAD WO CONTRAST 2021-08-20 20:21:07 Sridevi Crowley [facility] XR CHEST 1 VW 2021-08-20 20:20:52 Sridevi Crowley [facility] CONSENT/REFUSAL FOR 2021-08-20 18:58:35 Doctor Unassigned, [facility]3] NOTICE OF PRIVACY 2021-08-20 18:58:13 Doctor Unassigned, No [facility] COLONOSCOPY (ENDO) 2020-07-18 12:52:38 Triston Roberts [facility] CONSENT/REFUSAL FOR 2020-07-17 19:21:33 Doctor Unassigned, No Un iversity [facility] DIAGNOSIS AND TREATMENT [facility]3] ASSIGNMENT OF BENEFITS 2020-07-17 19:21:09 Doctor Unassigned, No [facility]SU PRE-OP 2020-06-21 05:01:00 Doctor Unassigned, No [facility] Encounters Start End Encounter Admission Attending Care Care Encounter Source Date/Time Date/Time Type Type Clinicians Facility Department ID 2021-06-22 Outpatient R ANASTASIA [facility] BRENDA [id number] Univers 07:34:15 CARLIE Greenberg [facility] 2023-01-16 2023-01-16 Outpatient DARLING HASTINGS [id number] Memoria 09:30:00 09:30:00 07 mariluz Garcia 2023-01-16 2023-01-16 Outpatient DARLING HASTINGS [id number] Memoria 09:30:00 09:30:00 07 mariluz Garcia 2022-10-25 2022-10-26 [id number] [facility] 05:15:00 13:41:00 Musaddiq 47 [facility] 2022-01-16 2022-01-17 Outpatient nullFlavo MNA [id number] Memoria 14:30:00 04:59:59 r Neurology 06 l [place] Jose 2022-01-16 2022-01-17 Outpatient nullFlavo MNA [id number] Memoria 14:30:00 04:59:59 r Neurology 06 l Kumar Garcia 2022-01-16 2022-01-16 Outpatient HECTOR Wan [id number] 09:30:00 23:59:59 Lexa Mine Matty 2022-01-16 2022-01-16 Outpatient DARLING HASTINGS [id number] Memoria 09:30:00 09:30:00 06 mariluz [place] 2021-08-20 2021-08-20 Emergency X , [facility] ERT [id number] Univers 13:16:00 16:00:00 SRIDEVI cope of [facility] 2021-08-20 2021-08-20 Emergency [facility] [id number] Univers 13:16:00 16:00:00 Sridevi STONE [id number] i ty [facility] [id number] [facility] [id number] [facility] 084 Branch 2021-08-20 2021-08-20 Orders Doctor JAIRO [id number] Univers 00:00:00 00:00:00 Only Unassigned, ORACIO [id number] ity of [facility] [id number] [facility] [phone] [facility] 009 Branch 2021-01-16 2021-01-17 Outpatient nullFlavo MNA [id number] Memoria 14:30:00 04:59:59 r Neurology 05 l Kumar Garcia 2021-01-16 2021-01-17 Outpatient nullFlavo MNA [id number] Memoria 14:30:00 04:59:59 r Neurology 05 l Kumar Garcia 2021-01-16 2021-01-16 Outpatient LEONA WanER MISCHER [id number] 09:30:00 23:59:59 Lexa 05 Matty 2021-01-16 2021-01-16 Ambulatory nullFlavo MNA [id number] Memoria 14:30:00 14:30:00 Pre-Reg r Neurology 04 l Kumar Garcia 2021-01-16 2021-01-16 Ambulatory nullFlavo MNA [id number] Memoria 14:30:00 14:30:00 Pre-Reg r Neurology 04 l Kumar Garcia 2021-01-16 2021-01-16 Outpatient MHIE MHIE [id number] Memoria 09:30:00 09:30:00 05 mariluz Garcia 2021-01-16 2021-01-16 Outpatient MHIE MHIE [id number] Memoria 09:30:00 09:30:00 04 mariluz Garcia 2021-01-16 2021-01-16 Outpatient LAUREN WanMISCHER MHMISCHER [id number] 09:30:00 09:30:00 Lexa 04 [facility] 2020-07-18 2020-07-18 [facility] [id number] Univers 06:58:00 09:07:00 Encounter Carlie greenberg [id number] ity of [place] 4.2.7.2.686 [facility] [id number] [address] 2020-07-17 2020-07-17 Laboratory Only, Adc Test [facility] 1.2.840. [id number] Univers 13:28:55 13:43:55 Only Carlie Segura 350.1.1 3.10 ity of [place] 4.2.7.2.686 [facility] [id number] [address] 2020-07-17 2020-07-17 Outpatient R [facility] [id number] Univers 13:15:00 13:15:00 CARLIE Greenberg f [facility] 2020-07-17 2020-07-17 Orders Doctor GILL [id number] Univers 00:00:00 00:00:00 Only Unassigned, ORACIO [id number] ity of [place] [facility] 4.2.7.2.686 Alirio as [id number] [address] 2020-01-17 2020-01-18 Outpatient nullFlavo MNA [id number] Memoria 18:15:00 04:59:59 r Neurology 03 mariluz [place] 2020-01-17 2020-01-18 Outpatient nullFlavo MNA [id number] Memoria 18:15:00 04:59:59 r Neurology 03 l [place] 2020-01-17 2020-01-17 Outpatient Soco, MHMISCHER MHMISCHER [id number] 13:15:00 23:59:59 Lexa 03 [facility] 2020-01-17 2020-01-17 Outpatient MHIE MHIE [id number] Memoria 13:15:00 13:15:00 03 mariluz Jose 2020-01-12 2020-01-12 Ambulatory nullFlavo MNA [id number] Memoria 14:00:00 14:00:00 Pre-Reg r Neurology 02 l [place] 2020-01-12 2020-01-12 Ambulatory nullFlavo MNA [id number] Memoria 14:00:00 14:00:00 Pre-Reg r Neurology 02 l [place] 2020-01-12 2020-01-12 Outpatient MHIE MHIE [id number] Memoria 09:00:00 09:00:00 02 mariluz [place] 2020-01-12 2020-01-12 Outpatient Soco MHMISCHER MHMISCHER [id number] 09:00:00 09:00:00 Lexa 02 Matty 2019-01-06 2019-01-07 Outpatient nullFlavo MNA [id number] Memoria 14:00:00 04:59:59 r Neurology 01 mariluz [place] 2019-01-06 2019-01-07 Outpatient nullFlavo MNA [id number] Memoria 14:00:00 04:59:59 r Neurology 01 mariluz [place] 2019-01-06 2019-01-06 Outpatient Soco MHMISCHER MHMISCHER [id number] 09:00:00 23:59:59 Lexa 01 Matty 2019-01-06 2019-01-06 Outpatient MHIE MHIE [id number] Memoria 09:00:00 09:00:00 01 l Jose 2018-09-02 2018-09-04 Outside nullFlavo MNA [id number] Memoria 13:50:00 05:59:59 Medical r Neurology 01 l Records Kumar Garcia 2018-09-02 2018-09-04 Outside nullFlavo MNA [id number] Memoria 13:50:00 05:59:59 Medical r Neurology 01 l Records Kumar Garcia 2018-09-02 2018-09-03 [id number] 07:50:00 23:59:59 2018-04-08 2018-04-08 Outpatient SAMI SAMI [id number] Memoria 09:15:00 09:15:00 00 mariluz Garcia 2018-04-08 2018-04-08 Outpatient DARLING SAMI [id number] Memoria 09:15:00 09:15:00 00 mariluz Garcia Results Test Description Test Time Test Comments Results Result Comments Source BASIC METABOLIC PANEL 2022-10-26 04:17:00 Test Item Value Reference Range Interpretation Comme nts SODIUM (test code = NA) 141 mmol/L 134-147 N POTASSIUM (test code = 3.9 mmol/L 3.4-5.0 N K) CHLORIDE (test code = 109 mmol/L 100-108 H CL) CARBON DIOXIDE (test 28 mmol/L 21-32 N code = CO2) ANION GAP (test code = 4.0 GAP calc 4.0-15.0 N GAP) GLUCOSE (test code = 99 MG/DL 70-110 N GLU) BLOOD UREA NITROGEN 16 MG/DL 7-18 N (test code = BUN) GLOMERULAR FILTRATION >=60 max estimate >60 T he Glomerular Filtration RATE (test code = GFR) estGFR Rate is a calculated parameterbased on serum Creatinine, pat ient age and sex. GFR values less than 60 mL/min/1.73 squ are meters are indicative ofChronic Kidney Disease. Values less than 15 mL/min/ 1.73square meters indicate Kidney failure. The ca lculation forGFR is based on the CKD-EPI (2020) calculation. This formulais race indifferent and is the recommended for ashok for GFRby the [facility] for Adults.The GFR will not ca lculate if the sex is unkn own or if thepatient's ag e is <18 years. CREATININE (test code = 0.9 MG/DL 0.8-1.3 N CREAT) CALCIUM (test code = CA) 8.0 MG/DL 8.5-10.1 L CBC W/AUTO [id number] 04:06:00 Test Item Value Reference Range Interpretation Comments WHITE BLOOD CELL (test code = 5.6 K/mm3 3.5-11.0 N WBC) RED BLOOD CELL (test code = 4.06 M/mm3 4.70-6.10 L RBC) HEMOGLOBIN (test code = HGB) 11.8 G/DL 12.3-15.9 L HEMATOCRIT (test code = HCT) 35.8 % 35.8-46.7 N MEAN CELL VOLUME (test code = 88.2 Fl 86.3-98.9 N MCV) MEAN CELL HGB (test code = MCH) 29.1 pg 28.9-34.4 N MEAN CELL HGB CONCETRATION 33.0 G/DL 32.1-34.5 N (test code = MCHC) RED CELL DISTRIBUTION WIDTH 14.5 SD 11.5-14.5 N (test code = RDW) PLATELET COUNT (test code = 173 K/mm3 150-450 N PLT) MEAN PLATELET VOLUME (test code 8.50 fL 7.0-9.6 N = MPV) NEUTROPHIL % (test code = NT%) 65.7 % 40-76 N IMMATURE GRANULOCYTE % (test 0.2 % 0.0-5.0 N code = IG%) LYMPHOCYTE % (test code = LY%) 19.9 % 20.5-51.1 L MONOCYTE % (test code = MO%) 12.4 % 1.7-9.3 H EOSINOPHIL % (test code = EO%) 1.6 % 0.0-6.0 N BASOPHIL % (test code = BA%) 0.2 % 0.0-2.0 N NUCLEATED RBC % (test code = 0.0 /100WBC% 0.0-1.0 N NRBC%) NEUTROPHIL # (test code = NT#) 3.7 K/mm3 1.8-7.6 N IMMATURE GRANULOCYTE # (test 0.01 x10 3/uL 0.00-0.03 N code = IG#) LYMPHOCYTE # (test code = LY#) 1.1 K/mm3 0.6-3.0 N MONOCYTE # (test code = MO#) 0.7 K/mm3 0.2-1.5 N EOSINOPHIL # (test code = EO#) 0.1 K/mm3 0.0-0.4 N BASOPHIL # (test code = BA#) 0.0 K/mm3 0.0-0.2 N NUCLEATED RBC # (test code = 0.0 K/mm3 0.00-0.01 N NRBC#) MANUAL DIFF REQUIRED (test code NO DIFF/SCN CRITERIA = MDIFF) COAGULATION TIME [id number] 09:52:00 Test Item Value Reference Range Interpretation Comments COAGULATION TIME ACTIVATED (test 314 SECistat 74-125 H code = ACT) COVID 19 INHOUSE [id number] 06:39:00 Test Item Value Reference Range Interpretation Comments COVID 19 INHOUSE AG NEGATIVE Negative Per manu facturer, (test code = negative result s should [id number]) be treated aspr esumptive and, if inconsi stent with clinical signs andsymptoms or necessary for patient man agement, should betested with an alternative mol ecular assay. Negative resultsdo not preclude SA RS-CoV-2 infection and s hould not be usedas the s ole basis for patient man agement decisions. Nega tive results should be considered in t he context of apatient's r ecent exposures, hist ory, presence of cli nicalsigns and symptoms co nsistent with COVID-19. [id number] 06:32:00 Test Item Value Reference Range Interpretation Comments MAGNESIUM (test code = MAG) 2.7 MG/DL 1.8-2.4 H PROTHROMBIN [id number] 06:32:00 Test Item Value Reference Range Interpretation Comments PT PATIENT (test 11.5 SECONDS 9.3-12.9 N code = PTP) INTERNATIONAL NORMAL 1.04 INR Unit 0.8-1.2 N TARGE T INR BY RATIO (test code = INDICATIO N Indication INR) INR1. Prophylax is of venous thrombos is 2.0 - 3.0 (orthoped ic surgery), Proph ylaxis of venous throm bosis (other than hig h-risk surgery), Treat ment of Deep Vein Thrombosis/Pulm onary Embolism, Preve ntion of systemic emb olism - Tissue heart va lves, Acute Myocardia l Infarction (to prevent systemic emboli sm), Valvular heart disease, Acute Myocardial Infa rction (to prevent sys temic embolism), Valv ular heart disease, Atrial Fibrillation, Bileaflet mecha nical valve in aortic position.2. Mec hanical prosthetic valv es (high risk), 2. 5 - 3.5 Presence of Lup us Anticoagulant o r Antiphospholipi d Antibodies, Pre vention of systemic emb olism - Acute Myocardia l Infarction (to prevent recurrent infar ct). THROMBOPLASTIN TIME [id number] 06:32:00 Test Item Value Reference Range Interpretation Comments THROMBOPLASTIN TIME PARTIAL 37.2 SECONDS 26-35 H (test code = PTT) COMPREHENSIVE METABOLIC [id number] 06:32:00 Test Item Value Reference Range Interpretation Comments SODIUM (test code 142 mmol/L 134-147 N = NA) POTASSIUM (test 4.2 mmol/L 3.4-5.0 N code = K) CHLORIDE (test 105 mmol/L 100-108 N code = CL) CARBON DIOXIDE 32 mmol/L 21-32 N (test code = CO2) ANION GAP (test 5.0 GAP calc 4.0-15.0 N code = GAP) GLUCOSE (test code 99 MG/DL 70-110 N = GLU) BLOOD UREA 20 MG/DL 7-18 H NITROGEN (test code = BUN) GLOMERULAR >=60 max >60 The Glomerular FILTRATION RATE estimate estGFR Filtratio n Rate is a (test code = GFR) calculated parameterbased on serum Creatinin e, patient age and sex. GFR valuesless than 60 mL/min/1.73 square meters are tabitha cative ofChronic Kidne y Disease. Values less than 15 mL/min/1.73squa re meters indicate Kidney failure. The calculation for GFR is based on the CK D-EPI (2020) calculat ion. This formulais race indifferent and is the recommended formula for GFR by the National [facility] [employer] for Adults.The GFR will not calculate i f the sex is unknown or if thepatient's ag e is <18 years. CREATININE (test 1.2 MG/DL 0.8-1.3 N code = CREAT) TOTAL PROTEIN 8.3 G/DL 6.4-8.2 H (test code = PROT) ALBUMIN (test code 4.2 G/DL 3.4-5.0 N = ALB) GLOBULIN (test 4.1 GM/dL code = GLOB) ALBUMIN/GLOBULIN 1.0 RATIO 1.2-2.2 L RATIO (test code = A/G) CALCIUM (test code 8.9 MG/DL 8.5-10.1 N = CA) BILIRUBIN TOTAL 0.20 MG/DL 0.2-1.2 N (test code = BILT) SGOT/AST (test 20 Unit/L 15-37 N code = AST) SGPT/ALT (test 39 Unit/L 12-78 N code = ALT) ALKALINE 124 Unit/L 50-136 N PHOSPHATASE TOTAL (test code = ALKP) LIPID PROFILE (CORONARY RISK)[id number] 06:32:00 Test Item Value Reference Range Interpretation Comments TRIGLYCERIDES (test 74 MG/DL 0-150 N code = TRIG) CHOLESTEROL (test 192 MG/DL 133-200 N code = CHOL) CHOLESTEROL/HDL 2.09 RATIO See_Comment RISK ASSOCIA LEENA WITH RATIO (test code = CHOL/HDL RATIOS: RISK CHOLHDL) MALE FEMALE1/2 AVERAGE 3.43 3.27AVERAG E 4.97 4.442X AVERAGE 9.55 7.053X AVERAGE 23.39 11.04 NOTE THAT THE REFERENCE VALUE IS RELATED TO RISK LEVELS ASRECOMMENDED B Y THE [facility] . [Automated mess age] The system which Prest[employer] nerated this result tra nsmitted reference range : 0-. The reference range was not used to interpr et this result as normal/abnormal . HDL CHOLESTEROL 92 MG/DL 40-59 H (test code = HDL) NON-HDL CHOLESTEROL 100 mg/dL <130 (test code = NHDL) LIPOPROTEIN LDL 91 MG/DL 0-129 N <100 OPTIMAL 100 - 129 (test code = LDL) NEAR OPTIM AL/ABOVE [id number] - 15 9 [id number] - 189 HIGH>OR= 190 VE RY HIGHNOTE THAT G UIDELINES ARE PROVIDED BY NATIONAL CHOLESTEROLEDUC ATION PROGRAM ADULT T REATMENT PANEL III LDL/HDL (test code 0.98 Ratio See_Comment L [Automat ed message] The = LDL/HDL) system which Prestodi[employer] nerated this result tra nsmitted reference range : 1.48-3.22 Avg. The reference range was not used to interpr et this result as normal/abnormal . CBC W/AUTO [id number] 06:28:00 Test Item Value Reference Range Interpretation Comments WHITE BLOOD CELL (test code = 6.6 K/mm3 3.5-11.0 N WBC) RED BLOOD CELL (test code = 4.61 M/mm3 4.70-6.10 L RBC) HEMOGLOBIN (test code = HGB) 13.3 G/DL 12.3-15.9 N HEMATOCRIT (test code = HCT) 41.1 % 35.8-46.7 N MEAN CELL VOLUME (test code = 89.2 Fl 86.3-98.9 N MCV) MEAN CELL HGB (test code = MCH) 28.9 pg 28.9-34.4 N MEAN CELL HGB CONCETRATION 32.4 G/DL 32.1-34.5 N (test code = MCHC) RED CELL DISTRIBUTION WIDTH 14.1 SD 11.5-14.5 N (test code = RDW) PLATELET COUNT (test code = 208 K/mm3 150-450 N PLT) MEAN PLATELET VOLUME (test code 8.70 fL 7.0-9.6 N = MPV) NEUTROPHIL % (test code = NT%) 63.4 % 40-76 N IMMATURE GRANULOCYTE % (test 0.3 % 0.0-5.0 N code = IG%) LYMPHOCYTE % (test code = LY%) 24.4 % 20.5-51.1 N MONOCYTE % (test code = MO%) 10.7 % 1.7-9.3 H EOSINOPHIL % (test code = EO%) 0.9 % 0.0-6.0 N BASOPHIL % (test code = BA%) 0.3 % 0.0-2.0 N NUCLEATED RBC % (test code = 0.0 /100WBC% 0.0-1.0 N NRBC%) NEUTROPHIL # (test code = NT#) 4.2 K/mm3 1.8-7.6 N IMMATURE GRANULOCYTE # (test 0.02 x10 3/uL 0.00-0.03 N code = IG#) LYMPHOCYTE # (test code = LY#) 1.6 K/mm3 0.6-3.0 N MONOCYTE # (test code = MO#) 0.7 K/mm3 0.2-1.5 N EOSINOPHIL # (test code = EO#) 0.1 K/mm3 0.0-0.4 N BASOPHIL # (test code = BA#) 0.0 K/mm3 0.0-0.2 N NUCLEATED RBC # (test code = 0.0 K/mm3 0.00-0.01 N NRBC#) MANUAL DIFF REQUIRED (test code NO DIFF/SCN CRITERIA = MDIFF)
[2023-01-06] MEDS ORDERED: ASPIRIN 81 MG CHEWABLE TABLET ONE (00:29)
[2023-01-06 00:35] LABS: Absolute Lymphocytes (CBC) 1.9 K/uL (0.7-4.9); Hematocrit 39.4 % (39.6-49.0); Lymphocytes % 30.8 % (15.3-44.8); MCV 88.4 fL (80-100); MPV 6.8 fL (7.6-11.3); RBC Red Blood Cell Count 4.46 M/uL (4.33-5.43)
[2023-01-06 00:37] LABS: Protime INR 1.02
[2023-01-06 00:48] LABS: ALT/SGPT 32 U/L (16-61); AST/SGOT 19 U/L (15-37); Albumin 3.8 g/dL (3.4-5.0); Alkaline Phosphatase 122 U/L (45-117); BUN Blood Urea Nitrogen 19 mg/dL (7-18); Bicarbonate 27 mEq/L (21-32); Bilirubin Total 0.2 mg/dL (0.2-1.0); Glomerular Filtration Rate 74 ml/min (=/>90); Glucose Level 99 mg/dL (74-106); Magnesium 2.4 mg/dL (1.6-2.4); NT PRO-BNP 13 pg/mL (<125); Protein, Total 7.7 g/dL (6.4-8.2); Sodium Level 137 mEq/L (136-145); Troponin High Sensitivity 20.7 pg/mL (<58.9)
[2023-01-06 00:49] LABS: Bilirubin Direct < 0.1 mg/dL (0-0.2); Bilirubin Indirect, Calculated ND mg/dL (0.2-0.8)
--- NOTE | 2023-01-06 01:18 | ER ---
Nurse's Notes [facility] Name: Nav Clemons Age: 67 yrs Sex: Male : 1955 Arrival Date: 01/05/2023 Time: 23:31 Bed 4 Private MD: Diagnosis: Unstable angina Presentation: 01/05 23:33 Chief complaint: Patient states: chest pain that started yesterday then went away but as6 returned this evening and has not gone away. Coronavirus screen: At this time, the client does not indicate any symptoms associated with coronavirus-19. Ebola Screen: No symptoms or risks identified at this time. Initial Sepsis Screen: Does the patient meet any 2 criteria? No. Patient's initial sepsis screen is negative. Does the patient have a suspected source of infection? No. Patient's initial sepsis screen is negative. Risk Assessment: Do you want to hurt yourself or someone else? Patient reports no desire to harm self or others. Onset of symptoms was January 04, 2023. 23:33 Method Of Arrival: Ambulatory as6 23:33 Acuity: LOLY 3 as6 Triage Assessment: 23:37 General: Appears in no apparent distress. Behavior is calm, cooperative. Pain: as6 Complains of pain in chest. Cardiovascular: Reports chest pain, Denies lightheadedness, palpitations, shortness of breath. Historical: - Allergies: 23:36 NKA; as6 - PMHx: 23:36 Hyperlipidemia; Hypertension; Seizures; as6 - PSHx: 23:36 Stented artery; as6 - Immunization history:: Client reports having NOT received the Covid vaccine. - Social history:: Smoking status: Patient denies any tobacco usage or history of. Screenin/16 02:17 [facility] ED Fall Risk Assessment (Adult) History of falling in the last 3 months, jb4 including since admission No falls in past 3 months (0 pts) Confusion or Disorientation No (0 pts) Score/Fall Risk Level 0 - 2 = Low Risk Oriented to surroundings, Maintained a safe environment. Abuse screen: Denies threats or abuse. Nutritional screening: No deficits noted. Tuberculosis screening: No symptoms or risk factors identified. Assessment: 01/05 23:45 General: Appears in no apparent distress. comfortable, Behavior is calm, cooperative, jb4 appropriate for age. Pain: Complains of pain in anterior aspect of left upper chest Pain does not radiate. Pain currently is 4 out of 10 on a pain scale. Quality of pain is described as Pain began 1 day ago. Neuro: Level of Consciousness is awake, alert, obeys commands, Oriented to person, place, time, situation. Cardiovascular: Patient's skin is warm and dry. Respiratory: Airway is patent Respiratory effort is even, unlabored, Respiratory pattern is regular, symmetrical. GI: No signs and/or symptoms were reported involving the gastrointestinal system. : No signs and/or symptoms were reported regarding the genitourinary system. EENT: No signs and/or symptoms were reported regarding the EENT system. Derm: Skin is intact, Skin is pink, warm \T\ dry. Musculoskeletal: Circulation, motion, and sensation intact. Range of motion: intact in all extremities. 01/06 01:00 Reassessment: Patient appears in no apparent distress at this time. Patient and/or jb4 family updated on plan of care and expected duration. Pain level reassessed. Patient is alert, oriented x 3, equal unlabored respirations, skin warm/dry/pink. 02:00 Reassessment: Patient appears in no apparent distress at this time. Patient and/or jb4 family updated on plan of care and expected duration. Pain level reassessed. Patient is alert, oriented x 3, equal unlabored respirations, skin warm/dry/pink. Vital Signs: 01/05 23:33 BP 116 / 82; Pulse 65; Resp 18 S; Temp 97.4(TE); Pulse Ox 100% on R/A; Weight 78.93 kg as6 (R); Height 5 ft. 7 in. (R); Pain 4/10; 01/06 01:00 BP 122 / 85; Pulse 91; Resp 16; Pulse Ox 100% on R/A; jb4 02:00 BP 113 / 81; Pulse 59; Resp 16; Pulse Ox 100% on R/A; jb4 01/05 23:33 Body Mass Index 27.25 (78.93 kg, 170.18 cm) as6 01/05 23:33 Pain Scale: Adult as6 ED Course: 01/05 23:32 Patient arrived in ED. ja2 23:36 Triage completed. as6 23:37 Roldan Branch PA is PHCP. cp 23:37 Juan Carlos Dickson MD is Attending Physician. cp 23:37 Arm band placed on. as6 01/06 00:00 Patient has correct armband on for positive identification. Client placed on continuous jb4 cardiac and pulse oximetry monitoring. NIBP monitoring applied. cafeteria monitor on. 00:10 Initial lab(s) drawn, by me, sent to lab. Inserted saline lock: 20 gauge in right jb4 antecubital area, using aseptic technique. Blood collected. Patient maintains SpO2 saturation greater than 95% on room air. 00:12 XRAY Chest (1 view) In Process Unspecified. EDMS 00:16 Basic Metabolic Panel Sent. jb4 00:16 CBC with Diff Sent. jb4 00:16 D-Dimer Sent. jb4 00:16 Magnesium Sent. jb4 00:16 NT PRO-BNP Sent. jb4 00:16 LFT's Sent. jb4 00:16 PT-INR Sent. jb4 00:16 Troponin HS Sent. jb4 00:48 Graham Shine, RN is Primary Nurse. jb4 01:17 Pamela Yanez PA-C is Hospitalizing Provider. cp 02:49 No provider procedures requiring assistance completed. Patient admitted, IV remains in jb4 place. Administered Medications: 00:24 Drug: Aspirin PO 162 mg Route: PO; jb4 Medication: 02:49 VIS not applicable for this client. jb4 Outcome: 01:18 Decision to Hospitalize by Provider. cp 02:49 Admitted to Med/surg accompanied by nurse, via wheelchair, room 214, with chart. jb4 02:49 Condition: stable 02:49 Discharge instructions given to patient, Instructed on the need for admit, Demonstrated understanding of instructions. 02:50 Patient left the ED. jb4 Signatures: Dispatcher [employer] EDMT Roldan Branch PA PA cp Graham Shine, RN RN jb4 Criss Parson Ashby, RN RN as6
--- NOTE | 2023-01-06 01:19 | EDPHYS ---
Physician Documentation [facility] Name: Nav Clemons Age: 67 yrs Sex: Male : 1955 Arrival Date: 01/05/2023 Time: 23:31 Bed 4 Private MD: ED Physician Juan Carlos Dickson HPI: 01/06 00:05 This 67 yrs old Black Male presents to ER via Ambulatory with complaints of Chest Pain. cp 00:05 The patient or guardian reports chest pain that is located primarily in the anterior cp chest wall, left. 00:05 Onset: 2 day(s) ago. The pain does not radiate. The chest pain is described as cp "stinging". Duration: The patient or guardian reports multiple episodes, that are intermittent, with no pattern. Severity of pain: in the emergency department the pain has resolved. Patient reports history of cardiac stent placement times [address] Roberts in October 2022. Historical: - Allergies: 01/05 23:36 NKA; as6 - PMHx: 23:36 Hyperlipidemia; Hypertension; Seizures; as6 - PSHx: 23:36 Stented artery; as6 - Immunization history:: Client reports having NOT received the Covid vaccine. - Social history:: Smoking status: Patient denies any tobacco usage or history of. ROS: 01/06 00:08 Constitutional: Negative for body aches, chills, fever, poor PO intake. cp 00:08 Cardiovascular: Positive for chest pain, Negative for edema, palpitations. cp 00:08 Respiratory: Negative for cough, shortness of breath, wheezing. 00:08 Abdomen/GI: Negative for abdominal pain, nausea, vomiting, and diarrhea. 00:08 Eyes: Negative for injury, pain, redness, and discharge. cp 00:08 Back: Negative for pain at rest, pain with movement, radiated pain. cp 00:08 Neuro: Negative for altered mental status, dizziness, headache, numbness, syncope, weakness. 00:08 All other systems are negative. Exam: 00:00 ECG was reviewed by the Attending Physician. cp 00:12 Constitutional: The patient appears in no acute distress, alert, awake, comfortable, cp non-diaphoretic, non-toxic, well developed, well nourished. 00:12 Head/Face: Normocephalic, atraumatic. cp 00:12 Eyes: Periorbital structures: appear normal, Conjunctiva: normal, no exudate, no cp injection, Sclera: no appreciated abnormality, Lids and lashes: appear normal, bilaterally. 00:12 ENT: External ear(s): are unremarkable, Nose: is normal, Mouth: Lips: moist, Oral mucosa: pink and intact, moist, Posterior pharynx: is normal, airway is patent, no erythema, no exudate. 00:12 Neck: ROM/movement: is normal, is supple, without pain, no range of motions limitations. 00:12 Chest/axilla: Inspection: normal. 00:12 Cardiovascular: Rate: normal, Rhythm: regular, Edema: is not appreciated, JVD: is not appreciated. 00:12 Respiratory: the patient does not display signs of respiratory distress, Respirations: normal, no use of accessory muscles, no retractions, labored breathing, is not present, Breath sounds: are clear throughout, no decreased breath sounds, no stridor, no wheezing. 00:12 Abdomen/GI: Inspection: abdomen appears normal, Palpation: abdomen is soft and non-tender, in all quadrants. 00:12 Back: pain, is absent, ROM is normal. 00:12 Neuro: Orientation: to person, place \\T\\ time. Mentation: is normal, Cerebellar function: is grossly normal, Motor: moves all fours, strength is normal, Sensation: is normal. Vital Signs: 01/05 23:33 BP 116 / 82; Pulse 65; Resp 18 S; Temp 97.4(TE); Pulse Ox 100% on R/A; Weight 78.93 kg as6 (R); Height 5 ft. 7 in. (R); Pain 4/10; 01/06 01:00 BP 122 / 85; Pulse 91; Resp 16; Pulse Ox 100% on R/A; jb4 02:00 BP 113 / 81; Pulse 59; Resp 16; Pulse Ox 100% on R/A; jb4 01/05 23:33 Body Mass Index 27.25 (78.93 kg, 170.18 cm) as6 01/05 23:33 Pain Scale: Adult as6 MDM: 01/05 23:39 Patient medically screened. cp 01/06 00:00 Differential diagnosis: acute myocardial infarction, acute pericarditis, chest wall cp pain, cholecystitis, Cholelithiasis pancreatitis, pericarditis, pleurisy, pneumonia, pneumothorax, pulmonary embolus, stable angina, thoracic aortic disection, unstable angina. 00:55 The patient was given aspirin in the Emergency Department. cp 00:55 Data reviewed: vital signs, nurses notes, lab test result(s), EKG, radiologic studies, cp plain films. 05 23:59 Order name: Basic Metabolic Panel; Complete Time: 00:51 cp 01/06 00:52 Interpretation: Normal except: CL 110; ANION GAP 4.0; BUN 19; GFR 74. cp 01/05 23:59 Order name: CBC with Diff; Complete Time: 00:51 cp 01/06 00:52 Interpretation: Normal except: HGB 13.0; HCT 39.4; MPV 6.8. cp 01/05 23:59 Order name: D-Dimer; Complete Time: 00:51 cp 01/05 23:59 Order name: LFT's; Complete Time: 00:51 cp 01/06 00:52 Interpretation: Normal except: ALK 122; GLOB 3.9; A/G 1.0. cp 01/05 23:59 Order name: Magnesium; Complete Time: 00:51 cp 01/05 23:59 Order name: NT PRO-BNP; Complete Time: 00:51 cp 01/05 23:59 Order name: PT-INR; Complete Time: 00:51 cp 01/05 23:59 Order name: Troponin HS; Complete Time: 00:51 cp 01/06 00:52 Interpretation: Reviewed. cp 01/05 23:59 Order name: XRAY Chest (1 view) cp 01/05 23:59 Order name: EKG; Complete Time: 23:59 cp 01/05 23:59 Order name: Cardiac monitoring; Complete Time: 00:16 cp 01/05 23:59 Order name: EKG - Nurse/Tech; Complete Time: 00:16 cp 01/05 23:59 Order name: IV Saline Lock; Complete Time: 00:16 cp 01/05 23:59 Order name: Labs collected and sent; Complete Time: 00:16 cp 01/05 23:59 Order name: O2 Per Protocol; Complete Time: 00:16 cp 01/05 23:59 Order name: O2 Sat Monitoring; Complete Time: 00:16 cp EC:00 Rate is 59 beats/min. Rhythm is regular. ND interval is normal. QRS interval is normal. cp QT interval is normal. T waves are Inverted in lead aVR. Interpreted by me. Reviewed by me. Administered Medications: 00:24 Drug: Aspirin PO 162 mg Route: PO; jb4 Disposition: 03:55 Co-signature as Attending Physician, Juan Carlos Dickson MD I agree with the assessment sp4 and plan of care. I reviewed the patient's care provided by the Advanced Practice Provider and agree with the diagnosis and treatment plan. Disposition Summary: 01/06/23 01:18 Hospitalization Ordered Hospitalization Status: Observation cp Provider: Pamela Yanez cp Location: Telemetry/MedSurg (observation) cp Condition: Stable cp Problem: new cp Symptoms: have improved cp Bed/Room Type: Standard cp Room Assignment: 214(01/06/23 01:51) cg Diagnosis - Unstable angina cp Forms: - Medication Reconciliation Form cp - SBAR form cp Signatures: Dispatcher [employer] EDMS Roldan Branch PA PA cp Nneka Ceron RN RN Graham Zuluaga RN RN jb4 Ken Jimenez RN RN as6 Juan Carlos Dickson MD MD sp4 Corrections: (The following items were deleted from the chart) 01:51 01:18 cp cg
--- NOTE | 2023-01-06 01:58 | P.HP ---
Certification for Inpatient Patient admitted to: Observation With expected LOS: <2 Midnights Patient will require the following post-hospital care: None Practitioner: I am a practitioner with admitting privileges, knowledge of patient current condition, hospital course, and medical plan of care. Services: Services provided to patient in accordance with Admission requirements found in Title 42 Section 412.3 of the Code of Federal Regulations Patient History Date of Service: 01/06/23 Primary Care Provider: Ila Reason for admission: Unstable Angina History of Present Illness: Mr. Clemons is a 67 year old male with past medical history of hypertension, coronary artery disease, and hyperlipidemia who [facility] of [facility] pain. He states that he had some intermittent chest pain yesterday that resolved but it returned this evening and has persisted. States it feels like a "stinging" sensation that is similar to when he previously required 3 stents in October 2022. He denies any radiation, shortness of breath, nausea, vomiting, diaphoresis. His labs are unremarkable today. EKG without any acute findings. He reports compliance with his medications- including brilinta, aspirin, losartan, and atorvastatin. Vital signs have been stable. ED provider wishes to admit patient for observation for ACS rule out. Allergies No Known Allergies Allergy (Verified 12/25/12 14:32) Home Medications: Phenytoin 200 mg PO BEDTIME 12/25/12 Phenytoin Sodium Extended [Dilantin] 30 mg PO DAILY 12/25/12 Aspirin [Aspirin EC 81 MG] 81 mg PO DAILY #30 tablet. 12/26/12 - Past Medical/Surgical History Diabetic: No -: Hypertension -: Hyperlipidemia -: Coronary Artery Disease -: Cardiac cath with 3 stents Psychosocial/ Personal History: Patient is . - Family History Family History: Reviewed- Non-Contributory - Social History Smoking Status: Never smoker Alcohol use: No CD- Drugs: No Caffeine use: Yes Place of Residence: Home Review of Systems Cardiovascular: Chest Pain Physical Examination - Vital Signs Temperature: 97.4 F Blood Pressure: 116/82 Pulse: 65 Respirations: 18 Pulse Ox (%): 100 - Physical Exam General: Alert, In no apparent distress HEENT: Atraumatic, EOMI, Sclerae nonicteric Neck: Supple, 2+ carotid pulse no bruit Respiratory: Clear to auscultation bilaterally, Normal air movement Cardiovascular: Regular rate/rhythm, Normal S1 S2 Gastrointestinal: Normal bowel sounds, No tenderness Musculoskeletal: No tenderness Integumentary: No rashes Neurological: Normal gait, Normal speech, Normal affect - Studies Laboratory Data (last 24 hrs) 01/06/23 00:10: PT 11.2, INR 1.02 01/06/23 00:10: WBC 6.30, Hgb 13.0 L, Hct 39.4 L, Plt Count 208 01/06/23 00:10: Sodium 137, Potassium 4.0, BUN 19 H, Creatinine 1.08, Glucose 99, Magnesium 2.4, Total Bilirubin 0.2, AST 19, ALT 32, Alkaline Phosphatase 122 H Assessment and Plan - Problems (Diagnosis) (1) Coronary artery disease Current Visit: Yes Status: Acute Qualifiers: Coronary Disease-Associated Artery/Lesion type: [place] artery [place] vs. transplanted heart: [place] heart Associated angina: with unstable angina Qualified Code(s): I25.110 - Atherosclerotic heart disease of [place] coronary artery with unstable angina pectoris (2) Hypertension Current Visit: Yes Status: Chronic Qualifiers: Hypertension type: primary hypertension Qualified Code(s): I10 - Essential (primary) hypertension (3) Hyperlipidemia Current Visit: Yes Status: Chronic Qualifiers: Hyperlipidemia type: unspecified Qualified Code(s): E78.5 - Hyperlipidemia, unspecified - Plan Patient is admitted for observation for ACS rule out. Initial troponin negative. Trend. Consult cardiology. Monitor on telemetry. EKG without acute changes. Obtain echocardiogram. Patient reports cardiac cath in October 2022 with [address] Roberts and compliance with his medications since. Continue home medications- aspirin, brilinta, atorvastatin, losartan. Monitor and replete electrolytes per protocol. Lovenox for VTE prophylaxis. Full code. Discharge Plan: Home Plan to discharge in: 24 Hours - Advance Directives Does patient have a Living Will: No Does patient have a Durable POA for Healthcare: No - Code Status/Comfort Care Code Status Assessed: Yes Code Status: Full Code Physician Review: Patient Assessed, Agree with Above Assessment and Plan Critical Care: No Time Spent Managing Pts Care (In Minutes): 50
[2023-01-06] MEDS ORDERED: ACETAMINOPHEN 500 MG TAB PO PRN (03:22)
[2023-01-06] MEDS ORDERED: ONDANSETRON 4 MG/2 ML VIAL IV PRN (03:22)
[2023-01-06 03:45] VITALS: BMI 27.2
[2023-01-06 04:40] LABS: Troponin High Sensitivity 19.2 pg/mL (<58.9)
--- NOTE | 2023-01-06 07:46 | EKG ---
Test Date: 2023-01-05 Test Time: 23:43:37 Vehicle Glass Technician: MEASUREMENT RESULTS: Intervals: Rate: 59 WA: 168 QRSD: 88 QT: 400 QTc: 396 [place]: P: 60 WA: 168 QRS: 64 T: 21 INTERPRETIVE STATEMENTS: Sinus bradycardia Possible Left atrial enlargement Borderline ECG Compared to ECG 07/31/2017 13:03:28 Sinus rhythm no longer present Left ventricular hypertrophy no longer present Electronically Signed On 01-06-23 07:45:20 CDT by Etienne Álvarez
[2023-01-06] MEDS ORDERED: ASPIRIN EC 81 MG TAB PO SCH (09:00)
[2023-01-06] MEDS ORDERED: ENOXAPARIN 40 MG/0.4 ML SQ SCH (09:00)
[2023-01-06] MEDS ORDERED: LIDOCAINE 1% 20 ML MDV ONE ×2 (12:58→14:55)
[2023-01-06] MEDS ORDERED: HEPARIN 5000 UNIT/ML 1 ML VIAL ONE (12:58)
[2023-01-06] MEDS ORDERED: HEPA 1000U/500MLS 2,000 UNIT/1,000 ML BAG IV ONE (12:58)
[2023-01-06] MEDS ORDERED: ATROPINE SULF 1 MG/10 ML SYR IV ONE (12:59)
[2023-01-06] MEDS ORDERED: VERAPAMIL HCL 10 MG/4 ML VIAL IV ONE (12:59)
[2023-01-06] MEDS ORDERED: CLOPIDOGREL 75 MG TABLET ONE (12:59)
[2023-01-06] MEDS ORDERED: HEPARIN 10,000 UNIT/10 ML VIAL IV ONE (12:59)
[2023-01-06] MEDS ORDERED: ASPIRIN 325 MG TAB ONE (12:59)
[2023-01-06] MEDS ORDERED: TICAGRELOR 90 MG TABLET PO ONE (12:59)
[2023-01-06] MEDS ORDERED: MIDAZOLAM HCL 2 MG/2 ML INJ ONE (13:01)
[2023-01-06] MEDS ORDERED: FENTANYL CITR 100 MCG/2 ML ONE (13:01)
--- NOTE | 2023-01-06 16:05 | OP ---
Date of Procedure: 01/06/2023 Surgeon: CAITLIN HAMPTON Procedures Performed: 1.Selective coronary angiogram. 2.Left heart catheterization. Indication: Unstable angina. Access: Right radial artery 6-Uzbek closed with TR band. Complications: None. Bleeding: Less than 10 mL. Sedation: None. Description Of Procedure: After risks, benefits, and alternatives were explained, the patient agreed to procedure and signed informed consent. The patient was brought into the cardiac catheterization laboratory, prepped and draped in the usual sterile fashion. Then, I accessed right radial artery us ing pediatric micropuncture kit, placed a 6-Uzbek Slender sheath, took 5-Uzbek [place] 4.0 catheter i nto the aortic root, engaged left main and the right coronary artery, took standard views and then th e catheter was pushed over the wire into the LV, measured LVEDP, and pullback did not record any grad ient. Then, we removed the catheter and sheath, placed TR band with good hemostasis. Findings: 1.Left main; large and normal. 2.LAD; the proximal segment is large and normal. In the mid segment, there is widely patent stent. No iSR and very large diagonal 1 branch has proximal stent that is patent. The rest of the LAD and diagonal branches are normal. 3.Left circumflex; it is moderate-size, nondominant and is normal. 4.RCA; very large and dominant and normal. 5.Normal LVEDP at 7 mmHg. Conclusion: 1.Widely patent mid LAD and diagonal 1 branch stents. 2.No coronary artery disease elsewhere. 3.Normal LVEDP. Recommendations: Continue Brilinta, aspirin, statin, and the patient can be released to follow up wi th his primary coding educator. SR/MODL Voice ID: [id number] Report ID: [id number]
--- NOTE | 2023-01-06 16:24 | RAD REPORT ---
EXAM DESCRIPTION: RAD - Chest Single View - 01/06/2023 12:10 am CLINICAL HISTORY: The patient is 67 years old and is Male; CHEST PAIN TECHNIQUE: Frontal view of the chest. COMPARISON: No relevant prior studies available. FINDINGS: Lungs: Unremarkable. No consolidation. Pleural space: Unremarkable. No pneumothorax. Heart: Unremarkable. Mediastinum: Unremarkable. Bones/joints: Unremarkable. IMPRESSION: No acute findings in the chest. Electronically signed by: Francisco Kingston MD 01/06/2023 12:44 AM CDT Due to temporary technical issues with the PACS/Fluency reporting system, reports are being signed by the in house radiologist without review as a courtesy to ensure prompt reporting. The interpreting r adiologist is fully responsible for the content of the report.
[2023-01-06 16:58] VITALS: O2SAT 99
--- NOTE | 2023-01-06 17:21 | CON ---
Date of Consultation: 01/06/2023 Reason For Consultation: Unstable angina. History Of Present Illness: Mr. Clemons is a 67-year-old black male with history of hypertension, seizu re disorder, dyslipidemia. In October 2022, he underwent what sounds like an LAD and diagonal stent by Dr. Roberts. He has done well since then, but came into the hospital with substernal chest pressure radiating to the left arm with some diaphoresis, shortness of breath. Denied any PND, orthopnea, [place] edema, palpitations, or syncope. Denied any fever or chills. EKG was nonspecific. Troponin was negative. The patient continued to have some mild chest pain. Allergies: NONE. Review of Systems: Negative. Social History: Negative. Family History: Negative. Medications: Include aspirin, Dilantin, Brilinta, and Lipitor. Physical Examination: Vital Signs: Stable, afebrile. HEENT: Negative. Neck: Supple with no bruit. Chest: Clear. Cardiac: Revealed a regular rhythm and rate with S4 gallops. No murmurs or rubs. Abdomen: Benign. Extremities: Revealed no clubbing, cyanosis, or edema. Diagnostic Data: As stated earlier. Impression And Plan: I am concerned Mr. Clemons's symptoms may be consistent with unstable angina. Rec ently, he had some stenting done in the LAD and the diagonal. He does have hypertension, dyslipidemi a, these are stable. Has a history of seizure disorder, on Dilantin. He claims to be compliant with Brilinta, Lipitor, and aspirin. Nevertheless, I feel uncomfortable to put him through a stress test . I decided that it is best to do another heart catheterization on him to redefine his coronary nicolasa laura. He understands the risks and the benefits of the procedure and he agrees to proceed. Echocardi ogram is pending as well. Continue present regimen. Case was discussed with Dr. Ang. EBEN/MAHAD Voice ID: [id number] Report ID: [id number]
[2023-01-06 20:05] VITALS: BP 112/60; TEMP 97.1
--- NOTE | 2023-01-06 20:20 | P.DS ---
Admission Date: 01/06/23 Discharge Date: 01/06/23 Primary Care Provider: Ila Disposition: ROUTINE DISCHARGE Discharge Condition: GOOD Reason for Admission: Unstable Angina Consultations: Cardiology- Dr. Álvarez and Dr. Knutson Procedures: Selective coronary angiogram and left heart catheterization - Problems (1) Coronary artery disease Status: Acute Qualifiers: Coronary Disease-Associated Artery/Lesion type: [place] artery [place] vs. transplanted heart: [place] heart Associated angina: with unstable angina Qualified Code(s): I25.110 - Atherosclerotic heart disease of [place] coronary artery with unstable angina pectoris (2) Hypertension Status: Chronic Qualifiers: Hypertension type: primary hypertension Qualified Code(s): I10 - Essential (primary) hypertension (3) Hyperlipidemia Status: Chronic Qualifiers: Hyperlipidemia type: unspecified Qualified Code(s): E78.5 - Hyperlipidemia, unspecified Brief History of Present Illness: Mr. Clemons is a 67 year old male with past medical history of hypertension, coronary artery disease, and hyperlipidemia who presented to the emergency department with complaints of chest pain. He states that he had some intermittent chest pain yesterday that resolved but it returned this evening and has persisted. States it feels like a "stinging" sensation that is similar to when he previously required 3 stents in October 2022. He denies any radiation, shortness of breath, nausea, vomiting, diaphoresis. His labs are unremarkable today. EKG without any acute findings. He reports compliance with his medications- including brilinta, aspirin, losartan, and atorvastatin. Vital signs have been stable. ED provider wishes to admit patient for observation for ACS rule out. Hospital Course: Mr. Clemons was admitted for observation. His troponin trended flat. Echocardiogram was obtained and is pending. He was evaluated by cardiology and underwent selective coronary angiogram and left heart catheterization. It revealed, "Widel y patent mid LAD and diagonal 1 branch stents, no coronary artery disease elsewhere, and Normal LVEDP." Cardiology recommended continuation of brilinta, aspirin, statin, and cleared him for discharge to follow up with primary agent based modeler. Right wrist incision site looks appropriate s/p heart cath. Vital signs have been stable. Mr. Clemons stated that his chest pain had improved and he understands to continue taking his current medications as prescribed and to follow up with Dr. Bazan. Vital Signs/Physical Exam: Temp Pulse Resp BP Pulse Ox 97.1 F 69 18 112/60 98 01/06/23 19:50 01/06/23 19:50 01/06/23 19:50 01/06/23 19:50 01/06/23 19:50 General: Alert, In no apparent distress HEENT: Atraumatic, Normocephalic Neck: Supple Respiratory: Clear to auscultation bilaterally, Normal air movement Cardiovascular: Regular rate/rhythm, Normal S1 S2 Gastrointestinal: Soft and benign, Non-distended Musculoskeletal: No clubbing Integumentary: No rashes Neurological: Normal speech, Normal affect Laboratory Data at Discharge: WBC 6.30 thou/uL (4.3-10.9) 01/06/23 00:10 Hgb 13.0 g/dL (13.6-17.9) L 01/06/23 00:10 Hct 39.4 % (39.6-49.0) L 01/06/23 00:10 Plt Count 208 thou/uL (152-406) 01/06/23 00:10 PT 11.2 SECONDS (9.5-12.5) 01/06/23 00:10 INR 1.02 01/06/23 00:10 Sodium 137 mEq/L (136-145) 01/06/23 00:10 Potassium 4.0 mEq/L (3.5-5.1) 01/06/23 00:10 BUN 19 mg/dL (7-18) H 01/06/23 00:10 Creatinine 1.08 mg/dL (0.70-1.30) 01/06/23 00:10 Glucose 99 mg/dL (74-106) 01/06/23 00:10 Magnesium 2.4 mg/dL (1.6-2.4) 01/06/23 00:10 Total Bilirubin 0.2 mg/dL (0.2-1.0) 01/06/23 00:10 AST 19 U/L (15-37) 01/06/23 00:10 ALT 32 U/L (16-61) 01/06/23 00:10 Alkaline Phosphatase 122 U/L (45-117) H 01/06/23 00:10 Triglycerides 83 mg/dL (<150) 01/06/23 03:45 Cholesterol 152 mg/dL (<200) 01/06/23 03:45 HDL Cholesterol 63 mg/dL (40-60) H 01/06/23 03:45 Cholesterol/HDL Ratio 2.41 01/06/23 03:45 Home Medications: Phenytoin 200 mg PO BEDTIME 12/25/12 Phenytoin Sodium Extended [Dilantin] 30 mg PO DAILY 12/25/12 Aspirin [Aspirin EC 81 MG] 81 mg PO DAILY #30 tablet. 12/26/12 Atorvastatin Calcium [Lipitor] 80 mg PO BEDTIME 01/06/23 Ticagrelor [Brilinta*] 90 mg PO BID 01/06/23 Physician Discharge Instructions: PROBLEM: Coronary Artery disease, Hypertension, Hyperlipidemia GOAL: Clear understanding of disease process INSTRUCTIONS: Diet: AHA Activity: Ad jama Please continue taking all home medications as prescribed. Take your Brilinta this evening, 01/06, at 9PM. Diet: AHA Activity: Ad jama Followup: Armand Thorpe DO, DO [Primary Care Provider] - 1-2 Weeks FRANK BAZAN [UNKNOWN] - 1-2 Weeks Physician Review: Patient Assessed, Agree with Above Assessment and Plan Time spent managing pt's care (in minutes): 15
--- NOTE | 2023-01-07 07:42 | ECHO ---
HEIGHT: 5 ft 7 in WEIGHT: 174 lb 0 oz DATE OF STUDY: 01/06/[address]: Pamela Yanez 2-DIMENSIONAL: YES M.MODE: YES DOPPLER: YES COLOR FLOW: YES TDS: NO PORTABLE: YES DEFINITY: NO BUBBLE STUDY: NO DIAGNOSIS: UNSTABLE ANGINA CARDIAC HISTORY: CATHERIZATION: YES SURGERY: NO PROSTHETIC VALVE: NO PACEMAKER: NO MEASUREMENTS (cm) DIASTOLIC (NORMALS) SYSTOLIC (NORMALS) IVSd 1.0 (0.6-1.2) LA Diam 2.2 (1.9-4.0) LVEF 71% LVIDd 3.7 (3.5-5.7) LVIDs 2.2 (2.0-3.5) %FS 40% LVPWd 1.1 (0.6-1.2) Ao Diam 3.3 (2.0-3.7) 2 DIMENSIONAL ASSESSMENT: RIGHT ATRIUM: NORMAL LEFT ATRIUM: NORMAL RIGHT VENTRICLE: NORMAL LEFT VENTRICLE: NORMAL TRICUSPID VALVE: MILD TRICUSPID REGURGITATION MITRAL VALVE: MILD MITRAL REGURGITATION PULMONIC VALVE: MILD PULMONIC INSUFFICIENCY AORTIC VALVE: MILD AORTIC INSUFFICIENCY PERICARDIAL EFFUSION: NONE AORTIC ROOT: NORMAL LEFT VENTRICULAR WALL MOTION: NORMAL. DOPPLER/COLOR FLOW: SEE BELOW. COMMENTS: NORMAL LEFT VENTRICULAR EJECTION FRACTION 60-65% NORMAL WALL MOTION NORMAL DIASTOLIC FUNCTION MILD (TRICUSPID REGURGITATION, PULMONIC INSUFFICIENCY) MILD (MITRAL REGURGIATION, AORTIC INSUFFICIENCY) TECHNOLOGIST: NHI PADGETT
== END 2023-01-06 20:15 | disposition home or self-care (01) ==
LOC: ER 23:31 → 2ND 01-06 01:47
PROVIDERS: ADMIT Internal Medicine; ATTEND Internal Medicine
DX: I25.110 Atherosclerotic heart disease of native coronary artery with unstable angina pectoris (principal); I10 Essential (primary) hypertension; E78.5 Hyperlipidemia, unspecified; G40.909 Epilepsy, unspecified, not intractable, without status epilepticus; Z95.5 Presence of coronary angioplasty implant and graft; Z79.82 Long term (current) use of aspirin; Z79.899 Other long term (current) drug therapy; Z28.310 Unvaccinated for COVID-19
CPT/HCPCS: 93005; 93306; 85025; 80048; 36415; 83735; 85610; 80061; 85379; 80076; 84484 ×3; 83880; 71045; 93458; 76937; 99285; C1893; Q9966; J1644; J2001 ×2; J1650; J2250; G0378 ×3; J0461; J3010